=== PATIENT | female | born 1940 | race African-American/Black ===

== ENCOUNTER 2020-06-25 05:41 | Inpatient (IN) | payer OTHER ==
[~2020-06-25] VITALS: Ht 170.2 cm; Wt 94.4 kg
[2020-06-25] VITALS (53 sets, daily range): BP systolic 63–149; BP diastolic 19–110
--- NOTE | ~2020-06-25 | O ---
[facility] [place] [address] OPERATIVE REPORT Name: TERESA MACIEL Room #: 358-P ADM IN M.R.#: [id number] Admission: 06/25/20 Attend Phys: Caleb Vasquez MD Discharge: Date of : 40 Report #: [id number] THIS REPORT FOR: cc: Winston Tran,Raomn Carson MD ~ CC: Caleb Tran DATE OF SERVICE: 07/18/2020 PREOPERATIVE DIAGNOSES: Failure to thrive with protein-calorie malnutrition. POSTOPERATIVE DIAGNOSES: Failure to thrive with protein-calorie malnutrition. OPERATION: Laparoscopic jejunostomy. SURGEON: Ramon Oconnor MD ANESTHESIA: General. ESTIMATED BLOOD LOSS: Minimal. SPECIMEN: None. DESCRIPTION OF PROCEDURE: After informed consent was obtained, the patient was brought to the operating room and placed supine. SCDs were placed and working, preoperative antibiotics were administered, general anesthesia was induced. The abdomen was prepped and draped in the usual sterile fashion. A 5 mm incision was made around the umbilicus. A 5 mm trocar was placed under direct vision with a Visiport technique. Left lower quadrant and inferior midline 5 mm trocars were placed under direct vision. This was initially was planned to be a gastrostomy. However, she had significant scarring in the right upper quadrant from a previous unknown. This is probably why GI was not able to place PEG as well. Therefore, I felt that it would be safest to place a jejunostomy. The jejunum was run from the ligament of Treitz. I selected a spot approximately 30 cm from the ligament of Treitz. It was cannulated with a Seldinger needle. Two T-bars were used to lr through the small bowel and bring it up to the abdomen. Wire was placed. Dilator was placed. A 14-Sami jejunostomy was placed through the sheath. The balloon was inflated on the jejunostomy. I then insufflated the jejunostomy to make sure that was in the bowel. This was intraluminal. The jejunostomy tube was then secured in place. The ports were removed under direct vision. The [address] [address] OPERATIVE REPORT Name: TERESA MACIEL Room #: 358-P ADM IN M.R.#: [id number] Admission: 06/25/20 Attend Phys: Caleb Vasquez MD Discharge: Date of : 40 Report #: [id number] skin was closed with 4-0 Monocryl. Incisions were sealed with Steri-Strips. COMPLICATIONS: None. DISPOSITION: The patient was taken to recovery in satisfactory condition. By: 1213 1225 Ramon Oconnor MD /nt
[2020-06-25 06:36] LABS: URINE BILIRUBIN NEGATIVE (Negative); URINE BLOOD 2+ (Negative); URINE CLARITY CLEAR; URINE COLOR YELLOW; URINE GLUCOSE-RANDOM* NEGATIVE (Negative); URINE KETONES NEGATIVE (Negative); URINE NITRITE-REFLEX NEGATIVE (Negative); URINE PROTEIN (DIPSTICK) 2+ (Negative); URINE SPECIFIC GRAVITY 1.025 (1.005-1.035); URINE UROBILINOGEN 0.2 E.U./dl (0.2-1.0)
[2020-06-25 06:39] LABS: URINE LEUKOCYTES-REFLEX 2+ (Negative)
[2020-06-25 06:58] LABS: SQUAMOUS 0-3 Few /LPF (0-3)
[2020-06-25 07:00] LABS: FINE GRANULAR CASTS 0-3 Few /LPF (None Seen); URINE RBC 3-10 Few /HPF (0-2); URINE WBC-REFLEX >25 Many /HPF (0-5)
[2020-06-25 07:01] LABS: AMORPHOUS URATES Moderate /LPF (None Seen); BACTERIA-REFLEX >30 Many /HPF (None Seen)
[2020-06-25] MEDS ORDERED: ASA81BEC PO (07:22)
[2020-06-25] MEDS ORDERED: MAGIC BULLET10 MG RECTAL (07:24)
[2020-06-25] MEDS ORDERED: BUSPIRONE HCL7.5 MG PO (07:24)
[2020-06-25] MEDS ORDERED: CLONIDINE HCL0.2 M2 PO (07:28)
[2020-06-25] MEDS ORDERED: VITAMIN D310 MC2 PO (07:28)
[2020-06-25] MEDS ORDERED: COLACE100 MG PO (07:29)
[2020-06-25] MEDS ORDERED: COMBIVENT INH (07:29)
[2020-06-25] MEDS ORDERED: DEPAKOTE125 MG PO (07:29)
[2020-06-25] MEDS ORDERED: VOLTAREN GEL 1100 G1 TOP (07:30)
[2020-06-25] MEDS ORDERED: DOXYCYCLINE 10100 M2 PO (07:30)
[2020-06-25] MEDS ORDERED: GVOKE SYRI1 MG/0.2 M SUBQ (07:31)
[2020-06-25] MEDS ORDERED: ELIQUIS5 MG PO (07:31)
[2020-06-25] MEDS ORDERED: HUMALOG100 UNIT/1 SUBQ (07:32)
[2020-06-25] MEDS ORDERED: LANTUS SUBQ (07:33)
[2020-06-25] MEDS ORDERED: HYDRALAZINE 10M10 MG PO (07:33)
[2020-06-25] MEDS ORDERED: LASIX 40 MG TAB40 MG PO (07:34)
[2020-06-25] MEDS ORDERED: LEVO-T75 MCG PO (07:34)
[2020-06-25] MEDS ORDERED: MAALOX ADVANCE355 M1 PO (07:34)
[2020-06-25] MEDS ORDERED: MAGNESIUM400 MG PO (07:35)
[2020-06-25] MEDS ORDERED: SUPER THERAVIT1 EACH PO (07:36)
[2020-06-25] MEDS ORDERED: MELATONIN5 MG SUBLING (07:36)
[2020-06-25] MEDS ORDERED: MIRALAX119 GM PO (07:36)
[2020-06-25] MEDS ORDERED: MIRTAZAPINE7.5 MG PO (07:37)
[2020-06-25] MEDS ORDERED: PROCARDIA XL60 MG PO (07:38)
[2020-06-25] MEDS ORDERED: NITROSTAT0.4 M1 SUBLING (07:40)
[2020-06-25] MEDS ORDERED: OXYCODONE HCL E10 MG PO (07:40)
[2020-06-25] MEDS ORDERED: KLOR-CON 1010 MEQ PO (07:41)
[2020-06-25] MEDS ORDERED: OYSTER SHELL 21 EACH PO (07:41)
[2020-06-25] MEDS ORDERED: RAYOS2 MG PO (07:42)
[2020-06-25] MEDS ORDERED: PREDNISONE 1 MG1 M1 PO (07:42)
[2020-06-25] MEDS ORDERED: TROKENDI XR50 MG PO (07:43)
[2020-06-25] MEDS ORDERED: SENNA PLUS TAB1 EACH PO (07:43)
[2020-06-25] MEDS ORDERED: PROTONIX40 M2 PO (07:43)
[2020-06-25] MEDS ORDERED: TYLENOL325 M1 PO (07:44)
[2020-06-25 07:46] LABS: HEMOGLOBIN 10.1 gm/dL (12.0-15.0); RDW 17.2 % (10.5-14.5)
[2020-06-25 07:47] LABS: HEMATOCRIT 31.6 % (37.0-47.0); MCH 26.2 pg (26.0-34.0); MCV 81.8 fL (80.0-100.0); PLATELET COUNT 249 thou/uL (150-400); RBC 3.86 mil/uL (4.20-5.00); WBC 14.5 thou/uL (4.0-11.0)
[2020-06-25 07:50] LABS: CREATININE 3.1 mg/dL (0.6-1.0); POTASSIUM 3.2 mmol/L (3.5-5.1)
[2020-06-25 08:00] LABS: ALBUMIN 1.2 g/dL (3.4-5.0); TOTAL BILIRUBIN 0.3 mg/dL (0.2-1.0); TOTAL PROTEIN 6.9 g/dL (6.4-8.2); TROPONIN-I 0.07 ng/mL (<0.06)
--- NOTE | 2020-06-25 08:28 | NUR ---
CENTRAL LINE PLACED BY DR MARQUEZ AT THIS TIME
--- NOTE | 2020-06-25 08:36 | EKG ---
[facility] [place] [address] ELECTROCARDIOGRAM REPORT Name: MACIELPATRICIA CORTEZINE Room #: [facility].#: [id number] Admission: 06/25/20 Attend Phys: Discharge: Date of : 40 Report #: [id number] THIS REPORT FOR: cc: Winston Tran James D. DO Lundgren, Craig H. MD [facility] ~ THIS REPORT FOR: //name// [facility] ED Test Date: 2020-06-25 Test Time: 05:53:33 Pat Name: TERESA MACIEL Department: Room: Gender: F Telecommunication Engineer: Riya : 1940 Requested By: Patrick Thomas Order Number: [id number] MD: Floyd Diaz Measurements Intervals [place] Rate: 146 P: AK: QRS: -59 QRSD: 94 T: 56 QT: 306 QTc: 477 Interpretive Statements Atrial fibrillation with rapid V-rate Left anterior fascicular block Inferior infarct, age indeterminate Poor R wave progression Baseline wander in lead(s) V5 No previous ECG available for comparison Electronically Signed On 06-25-2020 8:36:13 CDT by Floyd Diaz [email or web address] <ELECTRONICALLY SIGNED> By: Floyd Diaz MD, [facility] 06/25/20 0836 [id number] [id number] Floyd Diaz MD, [facility] /EPI
[2020-06-25 09:58] LABS: ABSOLUTE NEUTROPHILS 12.9 thou/uL (1.4-8.2); METAMYELOCYTES 2 %
[2020-06-25 09:59] LABS: ANISOCYTOSIS 1+
--- NOTE | 2020-06-25 18:59 | NUR ---
patient remains very drowsy and hard to arrouse. Patient is able to answer some questions and is alert to self. pleasant and cooperative with cares. no complaints of pain. wounds noted and documented. patient continues to be in afib rvr, rates still in the 130's despite crdizem drip being maxed. called cardiology and orders recieved for cardizem 120 po x 1. i was able to get the pill in her but she is to weak to swallow. no furhter concerns at this time. will conintue to monitor and care per plan of care
--- NOTE | 2020-06-25 21:16 | NUR ---
CALL TO DR. GARSIA [facility], RETURN PAGE AT 2025. DISCUSSED HR 120-135, RR 30'S, PATIENT UNABLE TO SWALLOW, UNSURE HOW MUCH OF PO CARDIZEM THAT PATIENT ACTUALLY RECIEVED. CARDIZEM GTT MAXED AT 20MG/HR. DISCUSSED SBP 90-100'S. ORDERS RECIEVED TO INCREASE CARDIZEM GTT TO 25 MG/HR AND TO CALL BACK IF HR NOT LESS THAN 110 IN 1 HOUR
--- NOTE | 2020-06-25 22:45 | NUR ---
CALL TO DR. GARSIA, WITH CALL BACK AT 2121 REGARDING HR, MAINTAINING 130'S-145. ORDERS TO GIVE 250CC BOLUS TO SUPPORT BP 87/42 (55), MAY GIVE SECOND BOLUS OF 250 CC IN 30 MINUTES IF BP IS STILL LOW. MAY WEAN CARDIZEM DOWN, GET EKG TO CONFIRM RHYTHM. EKG REVEALS SINUS OR ATRIAL TACHYCARDIA. TEMP WAS ALSO 102.9 WHEN THIS RN WENT IN TO TAKE GET EKG. CALL TO AMANDA HARVEY FOR RECTAL TYLENOL AND TO GIVE UPDATE. NOTIFIED DR. GARSIA OF CHANGES AND OBTAINED APPROVAL TO TITRATE CARDIZEM DOWN AND OFF. ROOM COOLED, RECTAL TYLENOL GIVEN, ICE PACKS IN PLACE, HR NOW MAINTAINING 125-133
[2020-06-26] VITALS (88 sets, daily range): BP systolic 72–130; BP diastolic 32–69
--- NOTE | 2020-06-26 01:24 | NUR ---
NOTIFIED CLINICAL PHLEBOTOMIST OF LOW BP, BLADDER SCAN ONLY 250CC, LAST VOID ON DAY SHIFT, HR 110'S. ORDERS FOR 250CC BOLUS TO SEE IF THAT HELPS BP
[2020-06-26 04:18] LABS: HEMATOCRIT 24.7 % (37.0-47.0); MCH 26.5 pg (26.0-34.0); MCHC 31.7 g/dL (28.0-37.0); MCV 83.4 fL (80.0-100.0); RBC 2.96 mil/uL (4.20-5.00); RDW 17.5 % (10.5-14.5); WBC 11.1 thou/uL (4.0-11.0)
[2020-06-26 04:34] LABS: ALBUMIN 0.8 g/dL (3.4-5.0); CALCIUM 6.8 mg/dL (8.5-10.1); CREATININE 3.2 mg/dL (0.6-1.0); POTASSIUM 3.2 mmol/L (3.5-5.1); TOTAL BILIRUBIN 0.3 mg/dL (0.2-1.0); TOTAL PROTEIN 5.4 g/dL (6.4-8.2)
[2020-06-26 05:25] LABS: HEMOGLOBIN 7.8 gm/dL (12.0-15.0)
--- NOTE | 2020-06-26 07:02 | NUR ---
HR LESS THAN 100, RR 20-25, ABLE TO INTERACT WITH RN, CONFUSED AT TIMES, BUT ABLE TO STATE "MY LEG HURTS." CRIES OUT WITH TURNS, MAPS>65 ON LEVO, WATERY STOOL WITH GREEN/BROWN. INCONT OF URINEX1.
--- NOTE | 2020-06-26 09:44 | NUR ---
cm completed the initial assessment; spk w/pt's son, Jona who stated pt has resided at [facility] for "about 5 yrs." Howard stated pt test covid positive "about 2 weeks ago, after testing negative a first." [facility] moved pt to a different facility where other covid positive pt resided, but he did not recall the name. howard said pt was there for "less than a week before they moved her back to [facility] and I dont know why...she was doing too good there." Howard said he is "working on her burial stuff." pt is bed to w/c. Howard denies pt has dementia, memory loss, "no, she recognizes everybody." cm left message for Emmy, Admission at [facility]. cm to cont to follow.
[2020-06-26 10:17] LABS: URINE BILIRUBIN NEGATIVE (Negative); URINE BLOOD 2+ (Negative); URINE COLOR YELLOW; URINE GLUCOSE-RANDOM* NEGATIVE (Negative); URINE KETONES NEGATIVE (Negative); URINE LEUKOCYTES 3+ (Negative); URINE NITRITE NEGATIVE (Negative); URINE PROTEIN (DIPSTICK) 2+ (Negative); URINE UROBILINOGEN 0.2 E.U./dl (0.2-1.0)
[2020-06-26 10:18] LABS: URINE CLARITY HAZY
[2020-06-26 10:31] LABS: URINE CREATININE-RANDOM* 89.3 mg/dL
[2020-06-26 10:52] LABS: SQUAMOUS 0-3 Few /LPF (0-3)
[2020-06-26 10:53] LABS: AMORPHOUS URATES Moderate /LPF (None Seen); HYALINE CASTS 0-3 Few /LPF (None Seen); URINE RBC 3-10 Few /HPF (0-2); URINE WBC >25 Many /HPF (0-5)
--- NOTE | 2020-06-26 12:40 | NUR ---
WOUND CONSULT; LIMITED ASESSMENT RE; COVID RESTRICTIONS USING THE RN BEDSIDE ASSESSMENT AND WOUND PICTURES. THE RIGHT MALLEOLAR AREA IS SUPERFICIAL WITHOUT S/S OF INFECTION. THE COCCYX/GLUTEAL CREASE HAS SKIN BREADOWN RE; MOISTURE EFFECTS. OPEN WOUND WITH A LINEAR PPRESENTATION. BEEFY RED TISSUE, NO S/S OF INFECTION. RECOMMENDATIONS; 1-TO COCCYX: ZGUARD, COVER WITH A SMALL SACRAL FOAM, DAILY/PRN 2-TO RIGHT MALLEOLOUS: COVER WITH A BORDER FOAM,DAILY/PRN DISCUSSED WITH RN
[2020-06-26 13:29] LABS: BE(vivo) -16.5 mmol/L (-2 to +3); HCO3 8.8 mmol/L (22.0-26.0); PO2 83.9 mmHg (80.0-100.0); sO2 95.2 % (92.0-98.0)
[2020-06-26 13:30] LABS: PCO2 20.1 mmHg (35.0-45.0)
[2020-06-26 14:03] LABS: HEMATOCRIT 25.6 % (37.0-47.0); HEMOGLOBIN 8.2 gm/dL (12.0-15.0); MCH 26.8 pg (26.0-34.0); MCHC 32.2 g/dL (28.0-37.0); MCV 83.4 fL (80.0-100.0); RBC 3.07 mil/uL (4.20-5.00); RDW 17.8 % (10.5-14.5); WBC 14.9 thou/uL (4.0-11.0)
[2020-06-26 14:20] LABS: CALCIUM 7.3 mg/dL (8.5-10.1); CREATININE 2.8 mg/dL (0.6-1.0); POTASSIUM 3.4 mmol/L (3.5-5.1)
--- NOTE | 2020-06-26 16:13 | EKG ---
[facility] [place] [address] ELECTROCARDIOGRAM REPORT Name: PATRICIA MACIELINE Room #: 241-P ADM IN M.R.#: [id number] Admission: 06/25/20 Attend Phys: Caleb Vasquez MD Discharge: Date of : 40 Report #: [id number] THIS REPORT FOR: cc: Winston Tran James D. DO Lammoglia, Francisco J. MD ~ THIS REPORT FOR: //name// [facility] Test Date: 2020-06-25 Test Time: 21:51:15 Pat Name: TERESA MACIEL Department: Room: 241 P Gender: F Instructional Support Specialist: Star Sutherland : 1940 Requested By: Caleb Vasquez Order Number: [id number] MD: Mio King Measurements Intervals [place] Rate: 132 P: 226 SC: 97 QRS: -68 QRSD: 73 T: 65 QT: 283 QTc: 420 Interpretive Statements Sinus or ectopic atrial tachycardia Inferior infarct, old Poor R wave progression Nonspecific ST-T wave change Compared to ECG 06/25/2020 05:53:33 Rhythm is regular Electronically Signed On 06-26-2020 16:13:13 CDT by Mio King [email or web address] <ELECTRONICALLY SIGNED> By: Mio King MD 06/26/20 1613 50 50 Mio King MD /EPI
--- NOTE | 2020-06-26 16:22 | EKG ---
[facility] [place] [address] ELECTROCARDIOGRAM REPORT Name: PATRICIA MACIELINE Room #: 241-P ADM IN M.R.#: [id number] Admission: 06/25/20 Attend Phys: Caleb Vasquez MD Discharge: Date of : 40 Report #: [id number] THIS REPORT FOR: cc: Winston Tran James D. DO Lammoglia, Francisco J. MD ~ THIS REPORT FOR: //name// [facility] Test Date: 2020-06-26 Test Time: 08:15:26 Pat Name: TERESA MACIEL Department: Room: 241 P Gender: F Mobile Ui/Ux Designer: JOSE : 1940 Requested By: Jerry Kraft Order Number: [id number] MD: Mio King Measurements Intervals [place] Rate: 99 P: 249 TN: 83 QRS: -49 QRSD: 83 T: 46 QT: 329 QTc: 423 Interpretive Statements Sinus or ectopic atrial rhythm Poor R wave progression Baseline wander in lead(s) V2 Compared to ECG 06/25/2020 05:53:33 No significant changes Electronically Signed On 06-26-2020 16:22:42 CDT by Mio King [email or web address] <ELECTRONICALLY SIGNED> By: Mio King MD 06/26/20 1622 4 4 Mio King MD /EPI
--- NOTE | 2020-06-26 19:22 | NUR ---
PATIENT NOTED TO HAVE CRITICAL VALUES IN BLOOD GAS. NOTIFIED. SEE NEW ORDERS. RESPIRATIONS ARE LABORED. PRN PAIN MED ADMININSTERED SHE TEMP WAS 99.0. FAMILY CALLED UPDATED ON PATIENTS STATUS. WILL CONT WITH PLAN OF CARES.
[2020-06-27] VITALS (90 sets, daily range): BP systolic 83–156; BP diastolic 37–78
[2020-06-27 01:44] LABS: MAGNESIUM 1.5 mg/dL (1.8-2.4)
[2020-06-27 02:01] LABS: POTASSIUM 2.8 mmol/L (3.5-5.1)
[2020-06-27 06:41] LABS: HEMATOCRIT 26.5 % (37.0-47.0); HEMOGLOBIN 8.4 gm/dL (12.0-15.0); MCH 25.7 pg (26.0-34.0); MCHC 31.7 g/dL (28.0-37.0); RBC 3.27 mil/uL (4.20-5.00); WBC 18.2 thou/uL (4.0-11.0)
[2020-06-27 09:16] LABS: BE(vivo) -6.9 mmol/L (-2 to +3); HCO3 16.2 mmol/L (22.0-26.0); PO2 71.4 mmHg (80.0-100.0); sO2 95.1 % (92.0-98.0)
[2020-06-27 09:21] LABS: CALCIUM 7.7 mg/dL (8.5-10.1); CREATININE 3.2 mg/dL (0.6-1.0); MAGNESIUM 2.1 mg/dL (1.8-2.4); POTASSIUM 3.3 mmol/L (3.5-5.1)
[2020-06-27 10:01] LABS: POTASSIUM 3.2 mmol/L (3.5-5.1)
--- NOTE | 2020-06-27 19:15 | NUR ---
tylenol given for discomfort, pt yells intermittently and always yells out when repositioned. R arm with increased edema despite elevation, doppler negative. kcl replaced per Dr. Elliott's order. resting in afternoon for @ 3 hrs. no appetite, difficult to even get crushed meds down with pudding. notified Dr. Mobley, bhoff placed at 65 cm, kub pending for placement. urine output decreasing, call placed to Dr. Elliott. stool sent for occult blood per order. agree with charting performed by KARLOS Velasco.
[2020-06-28] VITALS (95 sets, daily range): BP systolic 80–151; BP diastolic 37–107
--- NOTE | 2020-06-28 00:59 | NUR ---
CALLED LAB ABOUT MISC MESSAGE FROM DR. GOULD. PCR WAS SENT TO "[facility]" AND WILL HAVE TO BE CONTACTED IN AM TO RECIEVE THE PCR
[2020-06-28 05:08] LABS: ALBUMIN 0.9 g/dL (3.4-5.0); CALCIUM 7.6 mg/dL (8.5-10.1); CREATININE 2.6 mg/dL (0.6-1.0); PHOSPHORUS 1.9 mg/dL (2.5-4.9); POTASSIUM 3.5 mmol/L (3.5-5.1)
--- NOTE | 2020-06-28 07:30 | NUR ---
AL-ABSI ROUNDING. WOULD LIKE RIOS CATHETER TO BE CHANGED. THINKS PT IS HAVING URINARY RETENTION. STATED I HAD FLUSHED THE CATHETER AND HAD NO INCREASE IN AMOUNT OF URINE. STILL WOULD LIKE RIOS TO BE CHANGED OUT FOR ANOTHER.
--- NOTE | 2020-06-28 07:46 | NUR ---
PATIENT CRYIING OUT FOR SEVERAL HOURS AT BEGINNING OF SHIFT, TYLENOL GIVEN IN ATTEMPT TO EASE PAIN, WITHOUT RESULT. PATIENT CONTINUING TO CRY WITHOUT ANY MOVEMENT OR NURSING CARES. GAVE 1X DOSE OXYCODONE, PATIENT SLEPT FOR SEVERAL HOURS. WAKES AND FOLLOWS COMMANDS, ORIENTED TO PERSON.
--- NOTE | 2020-06-28 09:48 | NUR ---
RD received consult for tube feed recommendations. Start vital AF 1.2 at 30ml/hr and progress to goal of 65ml/hr. Defer fluid needs to renal.
--- NOTE | 2020-06-28 10:37 | NUR ---
WOUND CARE F/U; DISCUSSED THE PATIENTS WOUND STATUS WITH THE RN. LIMITED ASSESSMENT DUE TO COVID RESTRICTIONS. THE WOUNDS ARE UNCHANGED FROM LAST ASSESSMENT. CONTINUE CURRENT TREATMENT. RN PRESENT
--- NOTE | 2020-06-28 15:15 | NUR ---
MESSAGE LEFT FOR MEDICAL RECOREDS AT [facility]
--- NOTE | 2020-06-28 15:59 | NUR ---
CM SPOKE WITH CARE TEAM THIS AM. NURSE WAS REACHING OUT TO FACILITY TO DETERMINE BASELINE CREATININE. NO DISHCARGE IS ANTICPATED OVER THE WEEKEND. CM CALLED AND PROVIDED UPDATE TO SON. CM TO FOLLOW INIDCATED WITH DC PLANNING.
--- NOTE | 2020-06-28 17:35 | NUR ---
TALKED WITH MEDICAL RECORDS AT [place]. FAX NUMBER GIVEN. ASKED FOR RECENT LAB WORK AND MEDICAL HISTORY.
--- NOTE | 2020-06-28 18:25 | NUR ---
PT VSS THORUGHOUT SHIFT. LEVOPHED GTT WEANED OFF TODAY. TF STARTED. VITAL AF WITH GOAL OF 65 ML/HR. TALKED WITH JODI REGARDING PTS RECORDS. STATES THEY ARE GOING TO TRY FAXING AGAIN. PT YELLING OUT CONSTANTLY. HAD PERIODS OF REST. RIOS CATHETER CHANGED TODAY WITH NO INCREASE OF URINE OUTPUT. LASIX 80 MG IVP TID STARTED TODAY WITH LITTLE RESULTS.
--- NOTE | 2020-06-28 19:27 | NUR ---
RECEIVED REPORT FROM JIMI EVERETT. ASSUMED PATIENT CARE AT THIS TIME.
[2020-06-29] VITALS (93 sets, daily range): BP systolic 102–161; BP diastolic 48–83
[2020-06-29 11:27] LABS: ALBUMIN 0.9 g/dL (3.4-5.0); CALCIUM 7.7 mg/dL (8.5-10.1); CREATININE 2.6 mg/dL (0.6-1.0); PHOSPHORUS 1.6 mg/dL (2.5-4.9)
[2020-06-29 11:29] LABS: POTASSIUM 2.8 mmol/L (3.5-5.1)
[2020-06-29 13:31] LABS: PROT/CREAT RATIO 3.3; URINE CREATININE-RANDOM* 34.3 mg/dL; URINE PROTEIN-RANDOM* 111.8 mg/dL (<11.9)
[2020-06-29 14:45] LABS: BE(vivo) 7.3 mmol/L (-2 to +3); HCO3 30.6 mmol/L (22.0-26.0); PCO2 37.9 mmHg (35.0-45.0); PO2 67.5 mmHg (80.0-100.0); pH 7.525 (7.360-7.450); sO2 95.2 % (92.0-98.0)
[2020-06-29] MEDS ORDERED: SERTRALINE HCL100 MG PO (16:56)
--- NOTE | 2020-06-29 19:51 | NUR ---
PT UPSET CRYING & SCREAMING THROUGHOUT SHIFT. RESP RATE & HR INCREASED PT CONTINUES TO SHOW MENTAL DISTRESS. PHYSICIAN NOTIFIED ON 3 SEPARATE OCCASIONS REGARDING PT STATUS. ALSO NOTIFIED THAT PT IS ON ANTIPSYCHOTICS & ANTIDEPRESSANTS AT FACILITY THAT HAVE NOT BEEN RESTARTED SINCE ADMISSION. RECEIVED ORDERS FOR PRN MEDS. MEDS GIVEN TO PT WITHOUT ANY RELIEF NOTED. PHYSICIAN NOTIFIED OF PT CONTINUED STATUS APPROX 4HRS POST ADMINISTRATION. RECEIVED ONETIME IM ORDER. ADMINISTERED TO PT, PT CONTINUES TO CRY AND SCREAM OUT. ABLE TO CONSOLE PT WHILE IN ROOM BUT PT DOES NOT REORIENT. ATTEMPTED TO CALL PT FACILITY 3 TIMES THIS SHIFT TO DETERMINE BASELINE ASSESSMENT, PHONE WAS NOT ANSWERED ON ANY OCCASION. PT HAD MINIMAL URINE OUTPUT THIS SHIFT, NEPHROLOGY AND HOSPITALIST AWARE OF URINE OUTPUT. MEDS ORDERED AND ADMINISTERED. POTASSIUMS REPLACED PER ORDERS. PT REMAINS ON 4L NC O2 SAT WNL. FALL PRECAUTIONS IN PLACE.
[2020-06-30] VITALS (69 sets, daily range): BP systolic 107–170; BP diastolic 52–101
[2020-06-30 04:41] LABS: HEMATOCRIT 23.9 % (37.0-47.0); HEMOGLOBIN 7.7 gm/dL (12.0-15.0); MCH 25.8 pg (26.0-34.0); MCHC 32.4 g/dL (28.0-37.0); MCV 79.8 fL (80.0-100.0); PLATELET COUNT 116 thou/uL (150-400); RDW 17.6 % (10.5-14.5); WBC 24.7 thou/uL (4.0-11.0)
[2020-06-30 04:57] LABS: ALBUMIN 0.7 g/dL (3.4-5.0); CALCIUM 7.6 mg/dL (8.5-10.1); PHOSPHORUS 1.7 mg/dL (2.5-4.9); POTASSIUM 3.5 mmol/L (3.5-5.1); TOTAL BILIRUBIN 0.6 mg/dL (0.2-1.0); TOTAL PROTEIN 5.9 g/dL (6.4-8.2)
[2020-06-30 05:54] LABS: ABSOLUTE NEUTROPHILS 19.5 thou/uL (1.4-8.2); ANISOCYTOSIS 1+; NUCLEATED RBCS 6 /100WBC; SCHISTOCYTES FEW
[2020-06-30 05:55] LABS: TARGET CELLS OCCASIONAL
--- NOTE | 2020-06-30 08:12 | NUR ---
1899-RECEIVED REPORT FROM CHINEDU EVERETT. ASSUMED PATIENT CARE. VSS. PATIENT HAD 350 CC URINE OUT OVERNIGHT. UPDATED DR PATTERSON AND DR MARQUEZ WHEN THEY ROUNDED ON PATIENT AT 0600. PRN METOPROLOL FOR HR SUSTAINING >120. DR PATTERSON IS CHANGING THE IV ABX. PATIENT'S FMS LEAKING. REPLACED 06/30. YELLOW LIQUID STOOLS. REPLACED DRESSING ON SACRAL WOUND. BATHED PATIENT. PATIENT SCREAMING AND UNABLE TO REORIENT. PRN/SCHEDULED MEDS AND ONE TIME DOSE OF HALDOL FROM CANDICE FLIGHT RADIO OPERATOR GIVEN. PATIENT CALMED. PATIENT TOLERATED TUBE FEEDING. 729- GAVE PATIENT REPORT TO ABDIFATAH EVERETT. PATIENT CARE RELINQUISHED. PATIENT PROGRESSING WITH POC.
--- NOTE | 2020-06-30 18:30 | NUR ---
ST/multifocal atrial tachycardia, lopressor iv given x 1 for hr greater than 120, tolerated tube feeding, adequate urine output, drowsy, yelled out occasionally. slowly progressing.
[2020-07-01] VITALS (21 sets, daily range): BP systolic 128–170; BP diastolic 64–90
[2020-07-01 05:13] LABS: PLATELET COUNT 92 thou/uL (150-400)
[2020-07-01 05:16] LABS: HEMATOCRIT 24.2 % (37.0-47.0); HEMOGLOBIN 7.9 gm/dL (12.0-15.0); MCH 25.9 pg (26.0-34.0); MCHC 32.5 g/dL (28.0-37.0); MCV 79.5 fL (80.0-100.0); RBC 3.05 mil/uL (4.20-5.00); RDW 17.5 % (10.5-14.5); WBC 24.3 thou/uL (4.0-11.0)
[2020-07-01 05:43] LABS: ALBUMIN 0.8 g/dL (3.4-5.0); CALCIUM 7.9 mg/dL (8.5-10.1); CREATININE 3.1 mg/dL (0.6-1.0); POTASSIUM 4.2 mmol/L (3.5-5.1); TOTAL BILIRUBIN 0.6 mg/dL (0.2-1.0); TOTAL PROTEIN 6.2 g/dL (6.4-8.2)
--- NOTE | 2020-07-01 06:33 | NUR ---
Patient not progressing towards plan of care as evidenced by only moaning with intervention, not following commands. Patient blood pressure and heart rate continued as has been, o2 saturation has been >92% tonight. Central line dressing was changed as it was soiled, IV tubing removed as it is . Nurse to continue to monitor patient status and follow nursing care plan.
[2020-07-01 09:02] LABS: ABSOLUTE NEUTROPHILS 18.5 thou/uL (1.4-8.2); METAMYELOCYTES 1 %
--- NOTE | 2020-07-01 10:58 | NUR ---
WOUND CARE F/U; ASSESSMENT WAS COMPLETED WITH PICTURES AND RN'S ASSESSMENT DUE TO COVID RESTRICTIONS. THE WOUNDS ARE STABLE AND NO CHANGES ARE NECCESSARY. ALSO NO S/S OF INFECTION. DISCUSSED WITH RN
--- NOTE | 2020-07-01 14:09 | NUR ---
pt remains on o2 3 L per nc, unable to visit with pt to conserve on ppe. abnormal labs ie bun, creat, wbc. pt from [facility] but has been staying at [facility] rt positive covid. cm visited with her daughter neli via phone call, no concerns or needs voice. active listen during visit, daughter reported i am saving up and give me 3 months i will have [address] that i can live with mom and care for her. thank you for calling"/daughter neli. will cont following as needed for dc needs.
--- NOTE | 2020-07-01 18:12 | NUR ---
PT HAS BEEN SOMULENT TODAY. AWAKENS WHEN IN ROOM TALKING WITH HER BUT OTHERWISE ASLEEP. DR. FRANCIS ADJUSTED MEDS GOING FORTH. DISCONTINUE SEROQUEL. TOLERATING TF AT GOAL WITH NO RESIDUALS. VSS. AFEBRILE. DR. GOULD WOULD LIKE WOUND CARE TO LOOK AT PTS RIGHT ARM AND TREAT IF NEEDED.
[2020-07-02] VITALS (16 sets, daily range): BP systolic 108–159; BP diastolic 52–76
--- NOTE | 2020-07-02 05:39 | NUR ---
PATIENT AWAKE, OPENING EYES SPONTANEOUSLY, UNABLE TO SQUEEZE MY HANDS AND NO MOVEMENT TO BLE, VSS, AFEBRILE, DRESSING CHANGE TO COCCYX WOUND COMPLETED. RIGHT UPPER ARM WEEPING WOUNDS NOTED. MD AWARE PER REPORT. DELPHINE ELEVATED C PILLOWS. CHANGING PADS Q 4HRS.
[2020-07-02 05:44] LABS: ALBUMIN 0.9 g/dL (3.4-5.0); CALCIUM 8.1 mg/dL (8.5-10.1); CREATININE 2.6 mg/dL (0.6-1.0); PHOSPHORUS 2.5 mg/dL (2.5-4.9); POTASSIUM 3.6 mmol/L (3.5-5.1)
[2020-07-02 09:29] LABS: RBC 2.97 mil/uL (4.20-5.00)
[2020-07-02 09:31] LABS: HEMOGLOBIN 7.7 gm/dL (12.0-15.0); MCH 25.8 pg (26.0-34.0); MCV 80.8 fL (80.0-100.0); RDW 17.8 % (10.5-14.5); WBC 19.7 thou/uL (4.0-11.0)
[2020-07-02 10:14] LABS: NUCLEATED RBCS 10 /100WBC
[2020-07-02 10:15] LABS: LARGE PLATELETS FEW; PLATELET COUNT 84 thou/uL (150-400); PLATELET ESTIMATE DECREASED
[2020-07-02 10:16] LABS: ANISOCYTOSIS 1+; TOXIC GRANULATION 1+
[2020-07-02 10:17] LABS: HYPOCHROMASIA 1+; POIKILOCYTOSIS 1+; TARGET CELLS FEW
--- NOTE | 2020-07-02 15:43 | NUR ---
>>>0700 BEDSIDE SHIFT REPORT RECEIVED. PT IS DROWSY, RESTLESS. ABLE TO FOLLOW COMMANDS. DENIES PAIN. REPOSITIONING DONE. TUBE FEED AT 65ML/HR. PT IS TOLERATING. WILL CONTINUE TO MONITOR. >>>0800 ASSESSMENTS DONE. PT IS AWAKE, CALM. >>> 1357 CHINEDU RN 3W TELE NURSE GIVEN REPORT. PT TAKEN TO CT FOR CT OF HEAD. TRANSFERED TO 3W, MED SURG FLOOR. FAMILY CALLED, UPDATED ON PT CONDITION AND INFORMED OF THE TRANSFER.
--- NOTE | 2020-07-02 18:36 | HC ---
[facility] [place] [address] CONSULTATION Name: TERESA MACIEL Room #: 358- ADM IN M.R.#: [id number] Admission: 06/25/20 Attend Phys: Caleb Vasquez MD Discharge: Date of : 40 Report #: [id number] THIS REPORT FOR: cc: Winston Tran,Chapin Tucker MD ~ CC: Caleb Tran DATE OF SERVICE: 07/02/2020 CHIEF COMPLAINT: Multiple pressure ulcerations as well as a desquamating process to the right forearm. HISTORY OF PRESENT ILLNESS: This is a 79-year-old female patient who I was asked to see by Dr. Scott Nolasco mainly due to a desquamating process involving her right forearm. The patient has multiple other areas of skin breakdown as well. The patient was admitted on 06/25/2020 with rapid heart rate, respiratory rate and low oxygen saturations. She was found to have severe sepsis with group A strep bacteremia as well as being COVID-19 positive. She has had respiratory compromise with basilar infiltrate, acute kidney injury and encephalopathy, complicating underlying bipolar disorder. The patient is unable to provide any information about herself. PAST MEDICAL HISTORY: Per her records is positive for bipolar disorder, COPD, history of ventricular tachycardia, cognitive acute manic communication deficit, hypothyroidism, anxiety, dysphagia, hypertension, history of GI cancer, otherwise unspecified and type 2 diabetes mellitus. SOCIAL HISTORY: Unknown for drug, alcohol or tobacco use. FAMILY HISTORY: Unknown. MEDICATIONS: Include acetaminophen, ipratropium, albuterol, Eliquis, BuSpar, cefepime, diltiazem, Lasix, metoprolol, methylprednisolone, magnesium sulfate, magnesium oxide, Remeron, olanzapine, Protonix, risperidone, topiramate, clonidine, hydralazine, oxycodone. ALLERGIES: No known drug allergies. REVIEW OF SYSTEMS: Not obtainable. The patient is not able to communicate. She does occasionally make eye contact. She does not give any sort of indication as to her how she feels or makes no attempt to answer any questions. PHYSICAL EXAMINATION: VITAL SIGNS: Include temperature 96.9, pulse 108, blood pressure 112/56, [address] [address] CONSULTATION Name: TERESA MACIEL Room #: [address] [place] [address] IN M.R.#: [id number] Admission: 06/25/20 Attend Phys: Caleb Vasquez MD Discharge: Date of : 40 Report #: [id number] respiratory rate 18. GENERAL: This is a chronically ill-appearing female patient who appears to be in minimal distress. HEENT: Head is normocephalic. Nose demonstrates Dobbhoff tube in place. Facial structures are stable. NECK: Supple. LUNGS: Diminished. HEART: Regular rhythm. ABDOMEN: Obese, soft, nontender. There is intertrigo beneath the skin folds of the abdominal wall bilaterally. BACK: Examination of the back; sacroperineal region demonstrates what appears to be a stage 3 pressure ulcer to the coccygeal region. This is relatively clean and granulating and it is long and narrow and has no exposure of deep structures. There is breakdown in the perirectal region. There is a rectal tube in place. There is leakage around the rectal tube. She has moisture-associated skin damage in the perirectal labial and medial thigh region. EXTREMITIES: Demonstrate what appeared to be unstageable small pressure ulcers with some dry eschar and a little bit of crust involving the lateral malleoli bilaterally. Heels are intact. NEUROLOGIC: The patient appears to move spontaneously in a symmetrical fashion. She does not answer questions. Her level of orientation is not able to be assessed. LABORATORY DATA: Includes positive blood cultures for group A beta-hemolytic strep. No wound cultures have been obtained at this point; will be obtained today. Sodium 146, potassium 3.6, chloride 105, CO2 of 32, BUN 75, creatinine 2.6, calcium is 8.1, phosphorus 2.5, albumin is quite low at 0.9. It has been low throughout her hospitalization here. White blood cell count 19.7 with a hemoglobin of 7.7, hematocrit of 24.0, platelet count 84,000. CLINICAL IMPRESSION: 1. Desquamating process involving the right forearm. Etiology is not entirely established. We will check a culture and sensitivity from this area and then treat with topical gentamicin, Xeroform gauze, ABD, Kerlix and Jose wraps. Venous Doppler was negative for DVT involving the right upper extremity. 2. Stage 3 pressure ulcer of the coccyx. We will recommend a low air loss mattress, q. 2 hour turning and positioning, zinc oxide. There is fecal contamination, so secondary dressings are not going to be recommended at this time. She will need ongoing nutritional support. 3. Moisture-associated skin damage to the labia perirectal and perineal region. Recommend zinc oxide moisture barrier cream to this area q. 6 hours, frequent inspection for additional breakdown. 4. Abdominal skin fold intertrigo. We will recommend InterDry AG to these areas beneath the abdominal skin folds to be changed out daily. 5. Unstageable pressure ulcers to bilateral lateral malleoli. We will [address] [address] CONSULTATION Name: TERESA MACIEL Room #: 358-P [facility] IN M.R.#: [id number] Admission: 06/25/20 Attend Phys: Caleb Vasquez MD Discharge: Date of : 40 Report #: [id number] recommend the use of a border foam to both areas and then PRAFO boots for pressure prophylaxis while she is in bed. 6. Type 2 diabetes mellitus. 7. Morbid obesity. 8. Severe protein-calorie malnutrition. Recommendation ongoing tube feeding would be appropriate until she is able to eat. RECOMMENDATIONS: At this point in time, orders have been placed for dressing changes. I have discussed this case with Dr. Scott Nolasco. I will discuss further as additional data becomes available. I appreciate being asked to see her in consultation. <ELECTRONICALLY SIGNED> By: Chapin Carey MD 07/02/20 1836 1141 1237 Chapin Carey MD /nt
--- NOTE | 2020-07-02 19:46 | NUR ---
PATIENT TRANSFER FROM ICU AT 1330. ALERT TO SELF. NONE VERBLE. WOUND CARE PER ORDER. SLOWLY TOWARDS POC GOALS.
[2020-07-03 04:32] VITALS: BP 99/43
--- NOTE | 2020-07-03 05:59 | NUR ---
OPENS EYES.REPOSITIONED Q2 HOURS.ON TUBE FEEDING;VITAL AF 1.2 AT 65 ML/HR GOING TO DOBHOFF.RIOS TO DD.FECAL MANAGEMENT SYSTEM TO DD.MONITOR SHOWS SR WITH PVC'S.POC CONTINUED.
[2020-07-03 07:42] VITALS: BP 127/55
[2020-07-03 11:36] VITALS: BP 130/50
--- NOTE | 2020-07-03 14:43 | NUR ---
DARELL reviewed chart and spoke with nursing and attending physician. Pt was transferred to from ICU. Pt is in Enhanced Isolation due to COVID-19. Pt is afebrile and on 3L of O2. T is on IV abx. Pt had convalescent plasma on 06/27. DARELL provided update to [facility] post-acute liaison. emergency planner to fax clinical updates for review. Plan is for pt to return to [facility] when medically stable. DARELL is following to assist as needed with discharge planning.
--- NOTE | 2020-07-03 16:42 | NUR ---
FAXED CLINICAL UPDATE TO JODI OF RECEIVED CONFIRMATION AND LEFT MSG WITH NANCIE IN ADM.
[2020-07-03 16:52] VITALS: BP 118/51
[2020-07-03 19:44] VITALS: BP 108/55
[2020-07-04 04:15] VITALS: BP 101/48
[2020-07-04 06:36] LABS: CALCIUM 8.5 mg/dL (8.5-10.1); CREATININE 3.1 mg/dL (0.6-1.0); PHOSPHORUS 3.3 mg/dL (2.5-4.9); POTASSIUM 3.3 mmol/L (3.5-5.1)
--- NOTE | 2020-07-04 10:38 | HC ---
[facility] [place] [address] CONSULTATION Name: TERESA MACIEL Room #: 358-P ADM IN M.R.#: [id number] Admission: 06/25/20 Attend Phys: Caleb Vasquez MD Discharge: Date of : 40 Report #: [id number] THIS REPORT FOR: cc: Winston Tran James D. DO Khosla, Parveen K. MD ~ CC: Caleb Tran DATE OF SERVICE: 07/02/2020 HISTORY OF PRESENT ILLNESS: This is a 79-year-old female patient who is unable to provide any history. She makes some noises. She barely said anything, even when I asked her questions multiple times. I called the patient's son and he did not answer. I called the patient's daughter. She was initially upset that "how come the alf did not provide you all the information and you are trying to get from us." After explaining her, I was able to talk to her, but I do not think that history is reliable because there are many contraindications. Apparently, she was in a alf for 4-5 years. It is not clear why she was in a alf. She claims that they dropped the patient and her legs stopped working in the alf. She says her memory is good, but I do not know how to verify that because of the records says that she has cognitive deficits. When I asked her does she able to remember the month and years, she says "I never asked her that questions." She has numerous problems. From the record, it looks like she is DNR and DNI. Pulmonary is seeing her for increased oxygen needs. She was COVID positive according to the daughter and she was shifted to a different alf according to her. She has history of kidney injury and she has a history of atrial fibrillation. This is mainly from the record. She has a history of bipolar, COPD, hypothyroidism, anxiety, hypertension. diabetes, but this is all from the record. She is on multiple medications including Topamax and I do not know why she is on those. A 14-point review of system was attempted and this is all I can get from the record. This patient has been seen by multiple consultants and their notes were reviewed. PAST MEDICAL HISTORY: Positive for cognitive deficit according to the records. The daughter tells a different story. She has pretty significant disabilities, especially in the legs according to the daughter in the baseline. FAMILY HISTORY: Unremarkable. SOCIAL HISTORY: She lives in a alf. PHYSICAL EXAMINATION: Pretty limited. She made some noises, but she had no speech output, except when I tried to do the reflexes, she said stop. She would [facility] [address] [place] [address] CONSULTATION Name: PATRICIA MACIELINE Room #: 358-P [facility] IN M.R.#: [id number] Admission: 06/25/20 Attend Phys: Caleb Vasquez MD Discharge: Date of : 40 Report #: [id number] not follow commands for me. She did not move her legs for me. She had very limited if any movement of the arms. She had virtually no speech output. She was conscious, but she just did not follow any commands. LABORATORY DATA: Her last white count was 19.7. Her sodium is up at 146. Her last GFR is 22. Her last blood sugar is 337. Her last protein is only 0.9. TSH was done and that was okay. She does not appear to be in that much respiratory distress when I saw her, but that has been her baseline problem. She had a CT scan of the head and that does not show any acute abnormality. IMPRESSION: In spite of the history, the patient's daughter provided, it looks like the history and the record is more accurate and the patient has cognitive deficit in the baseline. She appears to have more problems, especially with the legs and she has been in a alf for a long period of time. I will suggest having a family conference with all the family member and try to be less aggressive in this patient. 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 I will suggest if the family agree not to be aggressive, not to do much testing on her. Otherwise, an MRI can be arranged to check for those changes. She does not appear to have any meningeal sign. I did order vitamin B12 and myasthenia marker to check for that and I will suggest putting some high dose of thiamine for 5 days and vitamins in her IV. I will discuss with you, but except for above I do not have any particular recommendation in this patient except to be very conservative in this patient if the family is agreeable and have a family conference with them. Thank you very much for this referral and if you have any question, please feel free to contact me. I would not plan to follow up this patient, but please call if the followup is needed. <ELECTRONICALLY SIGNED> By: Mj Green MD 07/04/20 1038 [id number] Mj Green MD /nt
--- NOTE | 2020-07-04 14:02 | NUR ---
SW reviewed chart and spoke with nursing. Pt remains in Enhanced Isolation due to COVID-19. Pt is afebrile and on 2L of O2. Pt is on IV steroids/IV abx. Pt has dobhoff in place. Plan is for pt to return to [facility] when medically stable. SW is following to assist as needed with discharge planning.
[2020-07-04 17:03] VITALS: BP 143/54
[2020-07-04 17:11] LABS: HEMATOCRIT 21.8 % (37.0-47.0); MCH 26.3 pg (26.0-34.0); MCHC 31.9 g/dL (28.0-37.0); MCV 82.3 fL (80.0-100.0); RBC 2.65 mil/uL (4.20-5.00); RDW 17.4 % (10.5-14.5); WBC 13.4 thou/uL (4.0-11.0)
[2020-07-04 17:22] LABS: APTT 31.5 Seconds (24.5-32.8); INR 1.2; PROTIME 11.8 Seconds (9.3-11.4)
[2020-07-04 17:29] LABS: DIRECT BILIRUBIN 0.2 mg/dL (<0.1-0.2); TOTAL BILIRUBIN 0.3 mg/dL (0.2-1.0); TOTAL PROTEIN 5.9 g/dL (6.4-8.2)
--- NOTE | 2020-07-04 18:43 | NUR ---
STARTED ARAGATROBAN IV AT 17:32 ALL LABS ON PROYOCOL aPPT PT INR CBC LFTs done PUT ORDER IN FOR aPTT IN 2 HOURS. WILL PASS STANDING ORDER SHEET ON TO NIGHT NURSE.
[2020-07-04 19:58] VITALS: BP 122/45
--- NOTE | 2020-07-05 03:49 | NUR ---
afebrile this shift. is to visit [facility]. no changes. continues on the anticoagulent. dressing changed to the rt arm, with kerlix and deandre bandage. contiues to have edema to bilateral upper extremities. careplan reviewed.
[2020-07-05 04:30] VITALS: BP 138/45
[2020-07-05 06:01] LABS: MCV 82.7 fL (80.0-100.0)
[2020-07-05 06:04] LABS: HEMATOCRIT 20.1 % (37.0-47.0); HEMOGLOBIN 6.5 gm/dL (12.0-15.0); MCH 26.6 pg (26.0-34.0); MCHC 32.2 g/dL (28.0-37.0); RBC 2.43 mil/uL (4.20-5.00); RDW 17.5 % (10.5-14.5); WBC 11.5 thou/uL (4.0-11.0)
[2020-07-05 06:38] LABS: CALCIUM 7.7 mg/dL (8.5-10.1); PHOSPHORUS 3.7 mg/dL (2.5-4.9); POTASSIUM 3.5 mmol/L (3.5-5.1)
[2020-07-05 07:36] VITALS: BP 100/37
--- NOTE | 2020-07-05 09:45 | NUR ---
Nutrition: Now that pt out of ICU, protein needs are revised. REC change tube feeding formula to Glucerna 1.2 at 65 mL/hr to prevent excessive protein provisions in setting of kidney issues but adequate for wound healing.
[2020-07-05 11:42] VITALS: BP 107/50
[2020-07-05 15:19] VITALS: BP 109/42
--- NOTE | 2020-07-05 16:27 | NUR ---
SW reviewed chart and spoke with nursing. Pt remains in Enhanced Isolation due to COVID-19. Pt is afebrile and on 2L of O2. Pt is on IV steroids/IV abx. Pt has dobhoff in place. Plan is for pt to return to [facility] when medically stable. [facility] is not anticpated. DARELL is following to assist as needed with discharge planning.
--- NOTE | 2020-07-05 19:18 | NUR ---
PT'S RECTAL TUBE OUT NIGHT NURSE STATES WILL LEAVE OUT FOR AWHILE AND THEN REPLACE.
[2020-07-05 20:45] VITALS: BP 111/47
[2020-07-06 03:34] VITALS: BP 115/42
[2020-07-06 07:29] VITALS: BP 110/42
[2020-07-06 07:42] LABS: MCH 27.2 pg (26.0-34.0); MCHC 32.1 g/dL (28.0-37.0); MCV 84.6 fL (80.0-100.0); RBC 2.15 mil/uL (4.20-5.00); RDW 17.2 % (10.5-14.5); WBC 10.2 thou/uL (4.0-11.0)
[2020-07-06 07:46] LABS: HEMATOCRIT 18.2 % (37.0-47.0); HEMOGLOBIN 5.8 gm/dL (12.0-15.0)
[2020-07-06 11:41] VITALS: BP 112/42
[2020-07-06 15:04] VITALS: BP 134/52
[2020-07-06 18:46] VITALS: BP 116/50; BP 152/64
--- NOTE | 2020-07-06 18:52 | NUR ---
PT HAS RESTED IN BED THROUGH THE DAY. SHE WILL OPEN HER EYES TEMPORAORY AND THEN GO BACK TO SLEEP. FAMILY CAME TO HOSPITAL TODAY WORRIED PATIENT WAS TERMINAL. CALLED FAMILY USING FACETIME AND THE SPOKE WITH PATIENT WHO SLEPT MOST OF THE TIME. HGB WAS LOW THIS AM AND TRANSFUSION INITIATED THIS PM. PATIENT NOTED TO HAVE VERY DARK BROWN LOOSE STOOLS. WILL CONT TO MONITOR HGB POST TRANSFUSION.
[2020-07-06 19:30] VITALS: BP 117/51
[2020-07-07 00:48] LABS: HEMATOCRIT 21.9 % (37.0-47.0); HEMOGLOBIN 7.1 gm/dL (12.0-15.0)
--- NOTE | 2020-07-07 03:11 | NUR ---
PT LYING IN BED. NONVERBAL. NO APPARENT PAIN. FREQUENT OBSERVATION.
[2020-07-07 04:29] VITALS: BP 120/55
[2020-07-07 05:56] LABS: HEMATOCRIT 22.1 % (37.0-47.0); MCH 27.3 pg (26.0-34.0); MCHC 31.8 g/dL (28.0-37.0); MCV 85.8 fL (80.0-100.0); RBC 2.57 mil/uL (4.20-5.00); RDW 17.1 % (10.5-14.5)
[2020-07-07 06:15] LABS: DIRECT BILIRUBIN 0.1 mg/dL (<0.1-0.2); TOTAL BILIRUBIN 0.3 mg/dL (0.2-1.0); TOTAL PROTEIN 5.7 g/dL (6.4-8.2)
[2020-07-07 06:49] LABS: ALBUMIN 1.1 g/dL (3.4-5.0); CALCIUM 7.3 mg/dL (8.5-10.1); CREATININE 2.6 mg/dL (0.6-1.0); PHOSPHORUS 4.7 mg/dL (2.5-4.9); POTASSIUM 3.5 mmol/L (3.5-5.1)
[2020-07-07 08:25] VITALS: BP 129/52
[2020-07-07] MEDS ORDERED: CARDIZEM CD120 MG PO (08:38)
--- NOTE | 2020-07-07 10:18 | NUR ---
covid +, discussed during prime time via phone call, hospitalist possible going to discuss with family goal of care and comfort care. will cont following as needed for dc needs.
[2020-07-07 11:40] VITALS: BP 121/51
--- NOTE | 2020-07-07 14:20 | NUR ---
ASSUMED PATIENT CARE THIS AM AT APPRXOMATELY 0700. PATIENT AWAKE, OPENS EYES. ABLE TO ANSWER SOME QUESTIONS BUT DISORIENTED X4. NO ACUTE DISTRESS NOTED AT THIS TIME. O2 SAT STABLE ON 2LNC. TOLERATING TUBE FEEDING. HAVING LOOSE BMS DRESSING CHANGED TO RIGHT ARM THIS SHIFT. PATIENT TURNED Q2H AND PRN. HEEL PROTETOR BOOTS IN PLACE AND HEELS OFFLOADED ON PILLOW. ZGUARD APPLIED TO ALL OPEN AREAS ON HER BOTTOM. PAIN WITH TURNING. SOME ANXIETY NOTED AFTER TURNING PATIENT AND PATIENT GIVEN ATIVAN X1 THIS SHIFT FOR ANXIETY. DRESSING TO RIGHT CENTRAL LINE INTACT WITH MINIMAL SEROUS DRAINAGE. PATIENT FAMILY ABLE TO SPEAK WITH HER THIS SHIFT VIA FACETIME.
[2020-07-07 16:00] VITALS: BP 127/57
[2020-07-07 20:55] VITALS: BP 115/50
[2020-07-08 03:40] VITALS: BP 96/32
[2020-07-08 04:20] VITALS: BP 106/43
[2020-07-08 05:54] LABS: MCH 27.9 pg (26.0-34.0); MCHC 32.5 g/dL (28.0-37.0); MCV 85.7 fL (80.0-100.0); RBC 2.28 mil/uL (4.20-5.00); RDW 17.3 % (10.5-14.5); WBC 11.8 thou/uL (4.0-11.0)
[2020-07-08 05:59] LABS: HEMOGLOBIN 6.4 gm/dL (12.0-15.0)
[2020-07-08 06:00] LABS: HEMATOCRIT 19.5 % (37.0-47.0)
--- NOTE | 2020-07-08 06:07 | NUR ---
Pt. has been repositioned for comfort. She screams when being turned. Able to state her name. Lorazepam given to help with anxiety. She eventually calm down later on. Maintaining O2 sat up to 100% on 2L/NC. No respiratory distress. Cont. on enhanced precaution , afebrile. Kept NPO per order , oral care done. Tube feeding changed to Glucerna 1.2 at 65 ml/hr per reg. dietitian's recommendation. DISTANCE LEARNING COORDINATOR notified and gave the order. Critical H&H also reported to her. Will verify with daughter per DISTANCE LEARNING COORDINATOR's request to make sure pt. is a Jehova's witness. Attempted to call daughter , unavailable and unable to leave a message. Fecal tube leaking , cleaned for incontinence and z guard applied to excoriated buttocks. Pt. rested well for the most part.
[2020-07-08 07:43] VITALS: BP 119/50
[2020-07-08] MEDS ORDERED: CEFEPIME 1 GM VI1 G2 INJECTION (08:58)
[2020-07-08 11:24] VITALS: BP 111/37
[2020-07-08 15:27] VITALS: BP 123/41
--- NOTE | 2020-07-08 16:15 | NUR ---
DARELL reviewed chart and spoke with nursing and attending physician. Discharge orders/summary written today. Pt has dobhoff in place. Palliative care physician consulted to discuss plan of care with pt's family. SW updated [place] post-acute liaison. DARELL is following to assist as needed with discharge planning.
--- NOTE | 2020-07-08 19:13 | NUR ---
ASSUMED PATIENT CARE AT 0700. OPEN EYE TO COICE. GENERLIZED EDEMA. TOLERATED TF. FMS LEEKING. WOUND CARE PER ORDER. NOT TOWARDS POC GOALS.
[2020-07-08 19:38] VITALS: BP 114/44
--- NOTE | 2020-07-09 03:59 | NUR ---
Patient is not making any progress towards outcome goals. Vital signs and rhythm stable. Dr Juarez consulted for palliative care. Tolerating tube feedings. IV fluids infusing. Total patient care. Turned to sides.
[2020-07-09 04:16] VITALS: BP 95/34
[2020-07-09 07:34] VITALS: BP 116/40
[2020-07-09 11:31] VITALS: BP 126/53
--- NOTE | 2020-07-09 13:36 | NUR ---
DARELL reviewed chart and spoke with nursing and attending physician. Pt is in Enhanced Isolation due to COVID-19. Repeat test on 07/05 is positive. Pt is afebrile and on 2L of O2. Pt has dobhoff in place. Palliative physician consulted to discuss plan of care with pt's family. data processing systems project planner to fax clinical updates to [facility] for review. DARELL updated [place] post-acute liaison. DARELL is following to assist as needed with discharge planning.
[2020-07-09 15:32] VITALS: BP 122/46
--- NOTE | 2020-07-09 15:41 | NUR ---
FAXED CLINICAL UPDATE TO [facility] SPOKE WITH NANCIE IN ADM SHE RECEIVED UPDATE. DP TO FOLLOW.
--- NOTE | 2020-07-09 18:21 | NUR ---
ASSSUMED PATIENT CARE AT 0700. AWAKE. NOTED INCREASED GENERLIZED EDEMA. INCREASED RR TO 24/M. AFEBRILE. VSS. FMS LEEKING. WOUND CARE PER ORDERS. UPDATE WITH PATIENT'S DAUGHTER (ANA LUISA FOREMAN) PATIENT'S CONDITION. ANA LUISA SAID SHE IS NOT READY FOR HER MOM GO HOSPICE. SHE NEEDS 7 DAYS. UPDATE WITH SW ALSO. PATIENT NOT TOWARDS POC GOALS.
[2020-07-09 19:07] VITALS: BP 118/53
[2020-07-10 03:30] VITALS: BP 94/51
--- NOTE | 2020-07-10 06:46 | NUR ---
FOLLOWING POC WITH Q2 TURNS. PT ALSO HAS LOW LOSS AIR PUMP. D5 INFUSING AT 125ML. VSS, NO FEVERS OVERNIGHT. ISOLATION AND FALL PRECAUTIONS IN PLACE.
--- NOTE | 2020-07-10 11:38 | NUR ---
Nutrition: Pt with dobhoff nearly 2 weeks. REC determine further POC-oral diet vs hospice vs PEG.
--- NOTE | 2020-07-10 13:07 | NUR ---
SW reviewed chart and spoke with nursing. Pt remains in Enhanced Isolation due to COVID-19. Pt is afebrile and on 2L of O2. Pt has dobhoff in place. Nursing notified SW that palliative care physician did speak with pt's dtr. Family is not ready for hospice at this time. SW provided update to [place] post-acute liaison. DARELL is following to assist as needed with discharge planning.
[2020-07-10 13:51] LABS: HEMATOCRIT 19.2 % (37.0-47.0); HEMOGLOBIN 6.3 gm/dL (12.0-15.0)
[2020-07-10 13:55] LABS: CALCIUM 7.3 mg/dL (8.5-10.1); CREATININE 1.8 mg/dL (0.6-1.0); POTASSIUM 3.5 mmol/L (3.5-5.1)
[2020-07-10 15:50] VITALS: BP 118/43
--- NOTE | 2020-07-10 19:18 | NUR ---
PT APPEARED MORE ALERT TODAY. RESPONDING TO NURSE, NOTED SMILING AND THEN CRYING OUT TO HER MOTHER. SPOKE WITH GRAND DAUGHTER WHO SAID PT IS A MORMONISM AND WILL ACCEPT BLOOD TRANSFUSION. DR MUNGUIA NOTIFIED OF NEW NUMBER TO REACH PATIENT AND HE CALLED FAMILY. AFTER TALKING TO FAMILY DR MUNGUIA CALLED NURSE AND NOTIFIED NURSE THAT PATIENT'S FAMILY WILL LIKE TO HAVE AN PEG TUBE PLACED IF PATIENT IS NOT EATING. DR AYAN ZEPEDA. WILL CONT WITH PLAN OF CARE.
[2020-07-10 20:39] VITALS: BP 116/51
[2020-07-10 22:14] VITALS: BP 121/46; BP 121/49
[2020-07-11 04:44] VITALS: BP 129/64
[2020-07-11 06:04] LABS: HEMATOCRIT 23.6 % (37.0-47.0); HEMOGLOBIN 7.9 gm/dL (12.0-15.0); MCH 28.4 pg (26.0-34.0); MCHC 33.4 g/dL (28.0-37.0); RBC 2.78 mil/uL (4.20-5.00); RDW 17.6 % (10.5-14.5)
--- NOTE | 2020-07-11 06:36 | NUR ---
PT BECOMING MORE ALERT. TALKING AND SINGING SONGS, WELL CALLING OUT FOR MOMMA. FOLLOWING POC AND GAVE I UNIT OF PRBC WITH NO REACTIONS. AWAITING H/H. ISOLATION AND FALL PRECAUTIONS IN PLACE. Q2 TURNS THAT MAKE PT UNHAPPY.
[2020-07-11 07:00] LABS: CALCIUM 7.4 mg/dL (8.5-10.1); POTASSIUM 3.8 mmol/L (3.5-5.1)
[2020-07-11 07:29] VITALS: BP 113/63
[2020-07-11 11:35] VITALS: BP 115/59
--- NOTE | 2020-07-11 13:16 | NUR ---
SW reviewed chart and spoke with nursing. Pt remains in Enhanced Isolation due to COVID-19. Pt is afebrile and on 2L of O2. Pt is more alert today. ST consulted to evaluate pt to see if pt can be started on a diet. Per nursing, pt's family are agreeable with peg tube placement, if pt is unable to tolerate a diet. SW provided update to [place] post-acute liaison. SW is following to assist as needed with discharge planning.
[2020-07-11 16:23] VITALS: BP 136/122
--- NOTE | 2020-07-11 18:32 | HC ---
[facility] [place] [address] CONSULTATION Name: TERESA MACIEL Room #: 358- ADM IN M.R.#: [id number] Admission: 06/25/20 Attend Phys: Caleb Vasquez MD Discharge: Date of : 40 Report #: [id number] THIS REPORT FOR: cc: Winston Tran,Irma Skinner MD ~ CC: Caleb Tran DATE OF SERVICE: 06/27/2020 REASON FOR CONSULTATION: Acute kidney injury. REASON FOR PRESENTATION: Shortness of breath. HISTORY OF PRESENT ILLNESS: Very limited as the patient is very confused and not able to provide me with any details. She was brought from her nursing facility because of shortness of breath with desaturation and a pulse ox of 90%. This was while she was on 3 liters by nasal cannula. Apparently, the patient has history of cognitive deficit. She resides in a nursing facility. She has bipolar disorder with diabetes mellitus and hypertension. We do not know what her baseline kidney function is. We were consulted to manage her acute kidney injury and rising creatinine at 3.2 as of yesterday. The patient was extremely hypotensive on arrival, requiring IV fluid and pressors. She was admitted to the ICU. She had one test positive for COVID-19 viral infection. PAST MEDICAL HISTORY: Obtained from the medical chart. 1. Diabetes mellitus. 2. Hypertension. 3. Cognitive deficit. 4. COPD. MEDICATIONS: From the nursing facility. 1. Clonidine. 2. Lasix. 3. Levothyroxine. 4. Potassium. 5. Topiramate. 6. Insulin. 7. Hydralazine. 8. Eliquis. ALLERGIES: None. PAST SURGICAL HISTORY: Unobtainable given the patient's current mental status. [facility] [address] [place] [address] CONSULTATION Name: TERESA MACIEL Room #: 358-P [facility] IN [facility].#: [id number] Admission: 06/25/20 Attend Phys: Caleb Vasquez MD Discharge: Date of : 40 Report #: [id number] REVIEW OF SYSTEMS: Unobtainable given the patient's current mental status. FAMILY HISTORY: Unobtainable given the patient's current mental status. PHYSICAL EXAMINATION: GENERAL: The patient is confused. VITAL SIGNS: Blood pressure is 97/51. She is maintained on Levophed. HEAD AND NECK: No jugular venous distention. CHEST: Rhonchi are present bilaterally. CARDIOVASCULAR: No rub detected. ABDOMEN: Soft, nontender. EXTREMITIES: Lower extremities, no edema. LABORATORY DATA: White blood cell count 18.2, hemoglobin 8.4. Blood gas with a pH of 7.2. Chemistry from yesterday revealed a sodium of 144, potassium of 3.4, chloride of 112, carbon dioxide of 10, BUN of 43, creatinine is 2.8. UA loaded with bacteria and white blood cells. Blood culture positive for strep group A. ASSESSMENT, IMPRESSION AND PLAN: 1. Acute kidney injury. 2. Septic shock with group A beta Streptococcus. 3. COVID-19 infection. 4. Atrial fibrillation with rapid ventricular response. 5. Hypokalemia. 6. Metabolic acidosis. 7. Cognitive dysfunction. 8. Bipolar disorder. 9. Hypothyroidism. 10. Diabetes mellitus. 11. The patient's acute kidney injury is well explained by her current septic event. She is growing beta strep group A in her blood contributing to hypotension and septic shock. This will need to be addressed by the primary team. ID consultation will be needed. 12. Continue IV fluid; however, this was reformulated to address her metabolic acidosis. 13. Continue hemodynamic support. 14. Continue pressors. 15. Watch electrolytes. 16. Blood sugar control. 17. Atrial fibrillation management per primary team. 18. Her creatinine has already started to trend down; however, we need to pay [facility] [address] [place] [address] CONSULTATION Name: TERESA MACIEL Room #: 358-P [facility] IN .R.#: [id number] Admission: 06/25/20 Attend Phys: Caleb Vasquez MD Discharge: Date of : 40 Report #: [id number] close attention to her electrolytes, urine output, hemodynamics with good blood pressure support to assure continued improvement of her renal function. <ELECTRONICALLY SIGNED> By: Irma Hooker MD 07/11/20 1832 [id number] Irma Hooker MD /nt
[2020-07-11 19:30] VITALS: BP 110/42
[2020-07-12] VITALS (7 sets, daily range): BP systolic 111–160; BP diastolic 45–72
--- NOTE | 2020-07-12 03:34 | NUR ---
PATIENT IS A/O TO PERSON. DENIES SOB. C/O PAIN. REPOSITIONED Q2H. BATH PROVIDED. RIOS IN PLACE WITH GOOD URINE U/O. AFEBRILE. TOLERATING TUBE FEEDS. VSS. DENIES NEEDS. WILL KEEP MONITORING.
[2020-07-12 10:39] LABS: HEMATOCRIT 22.4 % (37.0-47.0); HEMOGLOBIN 7.5 gm/dL (12.0-15.0); MCH 28.3 pg (26.0-34.0); MCHC 33.2 g/dL (28.0-37.0); MCV 85.1 fL (80.0-100.0); RBC 2.63 mil/uL (4.20-5.00); RDW 18.2 % (10.5-14.5)
[2020-07-12 10:51] LABS: CREATININE 1.8 mg/dL (0.6-1.0); POTASSIUM 4.3 mmol/L (3.5-5.1)
--- NOTE | 2020-07-12 15:22 | NUR ---
SW reviewed chart and spoke with nursing. Pt remains in Enhanced Isolation due to COVID-19. ST is working with pt to see if she is able to tolerate a diet. Dobhoff in place as well. Pt's family agreeable with peg tube placement if needed. No weekend discharge planned. DARELL updated [place] post-acute liaison. DARELL is following to assist as needed with discharge planning.
--- NOTE | 2020-07-12 18:33 | NUR ---
PER SPEECH PATIENT WILL MOST LIKELY NEED PEG TUBE PLACED. DR BENNETT WAS NOTIFIED AND SHE SPOKE WITH SON. SON TOLD DR BENNETT HE WILL CALL SISTER AND CONFIRM IF THEY NEED PEG TUBE. FAMILY HAD ALREADY AGREED TO PEG TUBE PLACEMENT PREVIOUSLY WITH DR MUNGUIA. WILL RELAY THIS INFO TO DR BENNETT. SHE STILL HAS DOBHUFF. RECTAL TUBE WAS TAKEN OUT AND MINIMAL STOOLS NOTED. WOUND CARE PROVIDED THROUGH THE DAY. WILL CONT WI PLAN OF CARE.
--- NOTE | 2020-07-13 05:35 | NUR ---
ASSUMED PT CARE AROUND 1930. ALERT AND AWAKE. MUMBLES WORDS. UNABLE TO FOLLOW COMMANDS AT THIS TIME. DOBHOFF INTACT WITH TUBE FEEDING RUNNING WITHOUT DIFFICULTY. VSS. NO S/S ACUTE DISTRESS NOTED OR REPORTED AT THIS TIME. WILL CONT TO MONITOR FOR ANY CHANGES IN CONDITION.
[2020-07-13 07:32] VITALS: BP 111/44
[2020-07-13 11:43] VITALS: BP 115/50; BP 92/33
[2020-07-13 15:37] VITALS: BP 109/45
[2020-07-13 19:32] VITALS: BP 131/63
--- NOTE | 2020-07-13 22:03 | NUR ---
PT RESTING IN BED LISTENING TO TV ANIMAL SHOW. PT EYES FOLLOW NURSE SHE TALKS AND COMPLETES TASKS. RIOS TO DD, GUIDO INTACT. PT SPORADICALLY YELLS MAMA OR SCREAMS EVEN WHEN STAFF NOT REPOSITIONING HER. GENERALIZED AND BLE EDEMA. PRAFO SCDS INTACT. NC INTACT. BED ALARM ON. MOUTH CARE PROVIDED.
--- NOTE | 2020-07-14 01:53 | NUR ---
PT HAS PROJECTILE LIQUID STOOL WHEN TURNING. OPEN RED AREAS REMAIN UNDER R BREAST AND ALL OVER GLUTEAL AREA, ZGUARD APPLIED. PT AWAKENED AND STARTED YELLING OUT, NOT ABLE TO BE VERBALLY REDIRECTED OR DISTRACTED PRN FOR ANXIETY PROVIDED.
--- NOTE | 2020-07-14 02:19 | NUR ---
CONTINUED YELLING AND SCREAMING FOR 45 MINUTES, NOT ABLE TO BE DISTRACTED OR REDIRECTED. PRN FOR AGITATION PROVIDED.
[2020-07-14 05:59] VITALS: BP 122/42
--- NOTE | 2020-07-14 06:31 | NUR ---
PT DID RELAX AFTER PRN FOR AGITATION WITH A DECREASE IN INTERMITTENT YELLING AND SCREAMING OUT WITH EPISODES OF SLEEPING.
[2020-07-14 08:03] VITALS: BP 11/43
--- NOTE | 2020-07-14 09:30 | NUR ---
GENERAL SURGERY ROUNDS. STATES PT IS MOST LIKELY NOT GOING TO GET A PEG TUBE TOMORROW. PHYSICIAN IS GOING TO TALK WITH HIS ASSOCIATE TOMORROW AND IT WILL BE MOST LIKELY WEDNESDAY FOR PEG IF FAMILY AGREES TO PROCEDURE.
[2020-07-14 11:14] VITALS: BP 134/101
--- NOTE | 2020-07-14 12:26 | NUR ---
CALLED AND TALKED WITH DR. PENNY PATELING PT BLOOD SUGAR AND NPH INSULIN. STATES TO NOT GIVE. SHE WILL ADJUST ORDERS.
--- NOTE | 2020-07-14 15:00 | NUR ---
DOBHOFF CATHETER CLOGGED. UNABLE TO GET TO FLUSH. DOBHOFF REMOVED INTACT. NEW DOBHOFF PLACED TO RIGHT NARE. SECURED @ 55CM. XRAY ORDERED
--- NOTE | 2020-07-14 15:20 | NUR ---
BLOOD SUGAR TAKEN. GLUCOSE @ 60. 4OZ OF APPLE JUICE GIVEN VIA DOBHOFF. RECHECKED BLOOD SUGAR UP TO 68. WILL TREAT VIA IV
[2020-07-14 16:28] VITALS: BP 131/68
--- NOTE | 2020-07-14 16:45 | NUR ---
ATTEMPTED TO CALL DAUGHTER TO DISCUSS PEG TUBE. NO ANSWER
--- NOTE | 2020-07-14 18:00 | NUR ---
1 AMP D50 GIVEN VIA IVP. WILL CHECK SUGAR IN 15 MIN.
--- NOTE | 2020-07-14 18:15 | NUR ---
BLOOD GLUCOSE NOW 158
[2020-07-14 19:58] VITALS: BP 129/54
--- NOTE | 2020-07-14 21:42 | NUR ---
PT RESTING IN BED, LISTENING TO TV. ALERT TO SELF. PT HAS INTERMITTENT EPISODES OF SCREAMING/YELLING OUT WHEN STAFF ARE PRESENT IN ROOM AND WHEN THEY ARE NOT. TFEEDING TO DOBHOFF INTACT, RIOS TO DD, PRAFO INTACT. STAFF REPOSITIONING. REMAINS INCONTINENT OF STOOL. BARRIER CREAM TO COCCYX WOUNDS. BED ALARM ON.
[2020-07-15 03:17] VITALS: BP 131/56
[2020-07-15 07:53] VITALS: BP 112/76
--- NOTE | 2020-07-15 13:43 | NUR ---
SW reviewed chart and spoke with nursing and attending physician. Pt remains in Enhanced Isolation due to COVID-19. Repeat COVID test ordered today. GI consulted for peg tube placement. Pt has dobhoff in place. DARELL spoke with pt's son, Howard, via phone to discuss discharge timeframe. Pt's son is agreeable with pt returning to [facility] when ready for discharge. However, Howard and family would like for pt to go to another facility. SW explained barrier to finding a new facility that will accept a new COVID positive resident into their facility. Pt's son verbalized understanding. SW to contact a few facilities to see if any are accepting new COVID pts. SW faxed clinical updates to [place] post-acute liaison for review. DARELL is following to assist as needed with discharge planning.
--- NOTE | 2020-07-15 19:28 | NUR ---
RN HAS ASSUMED PT'S CARE AT 0700AM, PT OPENS HER EYES BY VOICE , PT KNOWS HER NAME , PT CAN FOLLOW SOME COMMANDS, PT IS CONTINUING WOUND CARE AND ISOLATION ( POSITIVE COVID AT 07/05 AND 06/14/20), PT IS OFF O2 AT ROOM AIR , PT'S O2SAT STAIES AT 94-96%, PT'S VS ARE STABE .
[2020-07-15 19:33] VITALS: BP 112/52
[2020-07-16 04:29] VITALS: BP 112/52
--- NOTE | 2020-07-16 06:24 | NUR ---
ASSUMED CARE OF PT AT 1900HRS. PT AOX1 AND CAN FOLLOW SIMPLE DIRECTIONS. FALL PRECAUTION IN PLACE. RIOS IN PLACE AND IS PATIENT. FECAL MGT SYS IN PLACE. TF AT GOAL RATE. RUE ELEVATED. PT TURNED Q2-3H. PT ON RA NOW AND STABLE. PT APPEARS TO BE COMFORTABLE AND SLEPT PART OF THE SHIFT. NPO MAINTAINED. ORAL CARE PROVIDED. NO S/S OF ACTE DISTRESS. WILL CONTINUE TO MONITOR.
[2020-07-16 07:51] VITALS: BP 109/53
[2020-07-16 11:12] VITALS: BP 121/46
--- NOTE | 2020-07-16 14:02 | HC ---
[facility] [place] [address] CONSULTATION Name: TERESA MACIEL Room #: 358-[facility] IN M.R.#: [id number] Admission: 06/25/20 Attend Phys: Caleb Vasquez MD Discharge: Date of : 40 Report #: [id number] THIS REPORT FOR: cc: Winston Tran,Mika Ruff MD ~ CC: Caleb Tran GASTROINTESTINAL CONSULTATION HISTORY OF PRESENT ILLNESS: The patient is a 79-year-old patient with altered mental status, who I have been asked to see for possible placement of a percutaneous endoscopic gastrostomy tube. She had COVID and has been in the hospital for over 2 weeks. I did not evaluate the patient or examined the patient as the patient still has COVID. I did ask her nurse about her current status, which includes 1 liter of oxygen, altered mental status and no other significant current complications. Her medical history is well-outlined in the chart. Her current medical problems related to her admission include COVID, COPD exacerbation, stage 3 pressure ulcer, encephalopathy, chronic renal insufficiency and acute renal insufficiency, hypernatremia, group A strep bacteremia, AFib, anemia, diabetes, hypothyroidism. She has had a nasogastric feeding tube since admission. Medical history otherwise can be seen in the chart. CURRENT MEDICATIONS: Currently include albuterol, diltiazem, insulin, risperidone, lorazepam, gentamicin, metoprolol, buspirone, topiramate, mirtazapine, pantoprazole, magnesium sulfate, levothyroxine, insulin. FAMILY HISTORY: Noncontributory. SOCIAL HISTORY: Noncontributory. REVIEW OF SYSTEMS: Unreliable and the patient was not interviewed. PHYSICAL EXAMINATION: Not performed. VITAL SIGNS: Afebrile, vital signs are stable. PERTINENT LABORATORY DATA: Include hemoglobin 7.5, MCV 85, RDW 18.2, platelet count 228. INR 1.2. She is COVID positive x2. IMAGING: Left pleural effusion on chest x-ray, bilateral infiltrates, widespread. ASSESSMENT: In summary, the patient requires long-term feeding and nutritional support. The family has requested a percutaneous endoscopic gastrostomy tube placement to simplify her care as she has required nasogastric tube feeding [address] [address] CONSULTATION Name: TERESA MACIEL Room #: [facility] IN .R.#: [id number] Admission: 06/25/20 Attend Phys: Caleb Vasquez MD Discharge: Date of : 40 Report #: [id number] since admission. We will plan on EGD, PEG after discussion with the family. With her altered mental status, there will be a concern for PEG dislodgement and a binder would be recommended 10/05. Problem with a dislodged PEG in a patient in the first 30 days could require surgery. We will follow along. Thank you for allowing us to participate in her care. <ELECTRONICALLY SIGNED> By: Jackson Hatfield MD 07/16/20 1402 0951 [id number] Mika Roth MD /nt
--- NOTE | 2020-07-16 14:34 | NUR ---
DARELL reviewed chart and spoke with nursing and attending physician. Pt remains in Enhanced Isolation due to COVID-19. Pt's repeat test yesterday was positive. Pt to have peg tube placed tomorrow. DARELL spoke with pt's son, Howard, via phone to provide update and discuss discharge plans. DARELL had contacted several other facilities, who state they are able to review and possible accept new COVID pts: [facility], [facility] and [facility]. These options provided to pt's son. Pt's son would like referrals to be sent to [facility] and [facility]. [facility] would be too far away from family. Pt's son is agreeable with pt returning to [facility] if alternate placement cannot be established prior to discharge. DARELL faxed referrals. Spoke with Estelle in admissions at [facility] and Sulma in admissions at [facility]. Awaiting input from facilities at this time. DARELL updated [place] post-acute liaison as well. DARELL is following to assist as needed with discharge planning.
[2020-07-16 15:14] VITALS: BP 109/54
[2020-07-16 19:54] VITALS: BP 128/50
[2020-07-17] VITALS (7 sets, daily range): BP systolic 103–142; BP diastolic 55–71
[2020-07-17 06:47] LABS: HEMOGLOBIN 6.9 gm/dL (12.0-15.0)
[2020-07-17 06:49] LABS: HEMATOCRIT 21.2 % (37.0-47.0); MCH 28.4 pg (26.0-34.0); MCHC 32.4 g/dL (28.0-37.0); MCV 87.6 fL (80.0-100.0); RBC 2.43 mil/uL (4.20-5.00); RDW 18.8 % (10.5-14.5); WBC 4.3 thou/uL (4.0-11.0)
[2020-07-17 07:08] LABS: CALCIUM 7.9 mg/dL (8.5-10.1); CREATININE 1.9 mg/dL (0.6-1.0); POTASSIUM 4.3 mmol/L (3.5-5.1)
--- NOTE | 2020-07-17 07:10 | NUR ---
PROGRESS PT ALERT BUT ORIENTED TO SELF CALLING OUT FOR HER MOMMA..REPOSITIONED Q2HRS, WOUND TO COCCYX DRAINING LARGE AMOUNT OF SEROSANGUINOUS FLUID, CLEANSED AND REDRESSED, FECAL MANAGEMENT SYSTEM INTACT DRAINING WATERY YELLOWISH STOOL, RIOS CATHETER IN PLACE DRAINING MODERATE AMOUNT OF DARK YELLOW URINE. ORAL CARE PROVIDED AND MOUTH SWABS FOR COMFORT.
--- NOTE | 2020-07-17 10:55 | NUR ---
PT WAS ORDERED PRBC TODAY, BLOOD TRANSFUSION OCCURING NOW, SECOND VERIFICATION DONE BY KARLOS LI. NO REACTION DURING THE FIRST 15 MINUTES OF TRANSFUSION, CENTRAL LINE BEING UTILIZED FOR TRANSFUSION. PT IS PLANNED TO GO IN FOR A PEG TUBE PLACEMENT TODAY. WOUND CARE HAS BEEN COMPLETED FOR THE DELPHINE. APPEARS TO BE HEALING WELL WITH DENUDING EPIDERMIS PRESENT. LORAZEPAM WAS GIVEN ONCE SINCE DURING DRESSING CHANGE PT WAS BEING VOCAL AND APPEARED TO BE IN DISTRESS. CONITNUING TO MONITOR. WILL UPDATE NECESSARY
--- NOTE | 2020-07-17 14:08 | NUR ---
DARELL reviewed chart and spoke with nursing and attending physician. Pt remains in Enhanced Isolation due to COVID-19. Pt is afebrile and not requiring O2. Pt having blood transfusion this morning and will have peg tube placed today. DARELL spoke with pt's son, Howard, via phone. [facility] and [facility] are both able to accept pt. Howard states there was miscommunication in the family and everyone is agreeable with pt returning to [facility] when medically stable. DARELL explained that discharge will be in 1-2 days. Howard verbalized understanding. DARELL updated [facility] post acute liaison, who confirms they are able to accept pt back. Will fax updates after peg tube placement and tube feeding orders have been written. DARELL left voice message for Sulma at [facility] and Estelle at [facility] to provide update. DARELL is following to assist as needed with discharge planning.
[2020-07-17 15:00] LABS: HEMATOCRIT 26.5 % (37.0-47.0); HEMOGLOBIN 8.6 gm/dL (12.0-15.0)
[2020-07-18] VITALS (10 sets, daily range): BP systolic 104–151; BP diastolic 47–81
--- NOTE | 2020-07-18 03:33 | NUR ---
Patient making slow progress towards outcome goals. NPO for peg placement. Vital signs and rhythm stable. Total care. Turned to sides.
[2020-07-18 05:51] LABS: HEMATOCRIT 26.6 % (37.0-47.0); HEMOGLOBIN 8.8 gm/dL (12.0-15.0); MCH 28.7 pg (26.0-34.0); MCV 86.9 fL (80.0-100.0); RBC 3.06 mil/uL (4.20-5.00); RDW 17.9 % (10.5-14.5); WBC 4.4 thou/uL (4.0-11.0)
--- NOTE | 2020-07-18 10:36 | NUR ---
CONSENT FORM OBTAINED VIA TWO RN VERBAL CONSENT. NO CHANGES FROM THE PT AT THIS TIME. Q2H TURNS BEING MAINTAINED. RN CONSULTED THE PHARMACIST TO SWITCH THE MEDICATION TO IV FORM, MOST MEDICATIONS HAVE BEEN ADMINISTERED IN THE NEW IV FORM EXCEPT FOR DILTIAZEM. PT HAS BEEN RUNNING STEADY RHYTHM AT A RATE OF 80/90s USUAL. RN DOES NOT SEE DILTIAZEM DRIP BEING FIT FOR THE PT AT THIS TIME. WILL CONTINUE TO MONITOR AND ADMINISTER NEEDED
--- NOTE | 2020-07-18 12:53 | P ---
[facility] [place] [address] PROCEDURE REPORT Name: TERESA MACIEL Room #: 358-P ADM IN M.R.#: [id number] Admission: 06/25/20 Attend Phys: Caleb Vasquez MD Discharge: Date of : 40 Report #: [id number] THIS REPORT FOR: cc: Winston Tran,Jackson Clark MD ~ CC: Caleb Tran DATE OF SERVICE: 07/17/2020 PROCEDURE PERFORMED: Upper endoscopy with attempted PEG tube placement. HISTORY OF PRESENT ILLNESS: The patient is a 79-year-old female with a history of COVID pneumonia, malnutrition, decubitus ulcers, currently receiving nutrition by [facility], request for PEG tube for long-term, more prison nutritional support. DESCRIPTION OF THE PROCEDURE: The risks and benefits of the procedure were explained to the patient's durable power of deputy county attorney, those risks including but not limited to bleeding, perforation and the risk of sedation as well as potential risk for infection. They understood these risks and gave informed consent. The procedure was performed in the operating room with propofol per anesthesia. The patient received 1 g of Ancef prior to the procedure. Next, using a standard Olympus upper endoscope, the scope was placed in the patient's mouth and advanced under direct vision through the esophagus, stomach and into the second portion of the duodenum. The esophagus was normal throughout. The GE junction was normal. There was a mild gastritis noted in the stomach, a few small fundic gland appearing polyps were noted, otherwise normal. The pylorus was normal and patent. The duodenal bulb, first and second portion were all normal. The scope was then brought back up into the patient's stomach and the stomach was fully insufflated with air. Unfortunately, not good transillumination was noted; however, with digital palpation, there was an area of very small transillumination. This site was then marked and cleaned with chlorhexidine solution and a sterile drape was put in place. Next, using a Xylocaine seeker needle, the needle was advanced under direct vision through the skin. However, even though I attempted 2 different passes, the needle was not seen in the gastric lumen. Because of the patient's size and the anatomy, I felt it was unlikely, we are going to be successful after 2 attempts. Therefore, no further attempts were made. At this point, the scope was then withdrawn and the procedure terminated. The patient tolerated the procedure well. IMPRESSION: 1. Mild gastritis with few fundic gland type polyps. [facility] [address] [place] [address] PROCEDURE REPORT Name: TERESA MACIEL Room #: 358-[facility] IN M.R.#: [id number] Admission: 06/25/20 Attend Phys: Caleb Vasquez MD Discharge: Date of : 40 Report #: [id number] 2. Otherwise, normal upper endoscopy. 3. Unsuccessful PEG tube placement as described above. RECOMMENDATIONS: Consult surgery for possible G-tube placement in the near future. Thank you for allowing me to participate in her care. <ELECTRONICALLY SIGNED> By: Jackson Hatfield MD 07/18/20 1253 1621 [id number] Jackson Hatfield MD /nt
--- NOTE | 2020-07-18 15:45 | NUR ---
DARELL reviewed chart and spoke with nursing. Pt remains in Enhanced Isolation due to COVID-19. Pt is afebrile and not requiring O2. Pt to have peg tube placed today in IR. DARELL faxed clinical updates and COVID test results to [facility] for review. DARELL updated [place] post-acute liaison. Discharge back to the facility is anticipated soon once pt is tolerating tube feeding. DARELL is following to assist as needed with discharge planning.
[2020-07-19 04:28] VITALS: BP 145/65
--- NOTE | 2020-07-19 06:38 | NUR ---
PROGRESS PT ALERT BUT CONFUSED, IVF'S INFUSING ORDERED. RIOS CATHETER IN PLACE DRAINING DARK YELLOW URINE, FMS DRAINING WATERY BROWN STOOL ONLY 100CC'S THIS SHIFT. REPOSITIONED Q2HRS. DRESSINGS TO RIGHT FOREARM, NEW PEG TUBE SITE WITH DRESSINGS THAT ARE C/D/I SOME DRAINAGE NOTED TO COCCYX DRESSING, LEFT NARE HAD A SCAB THAT FELL OFF AND BLEED WITH CARES CLEANSED AND GENTAMYCIN OINTMENT APPLIED. PEG TUBE CLAMPED WITH NO DRAINAIGE NOTED. VSS TELE INTACT READING SR WITH PAC'S SOME PVC'S BUT RATES IN THE 70'S TO 80'S. CONTINUE POC.
[2020-07-19 08:40] VITALS: BP 156/68
--- NOTE | 2020-07-19 10:50 | NUR ---
1050 - RECEIVED VERBAL ORDER/CLEARANCE FROM TO UTILIZE THE NEW J TUBE THAT WAS PLACED YESTERDAY. PER CNC FIELD SERVICE ENGINEER, VITAL 1.2 IS RECOMMENDED OVER GLUCERNA 1.2. SAME GOAL RATE OF 65ML/HR. RN PAGED TO COMMUNICATE THIS INFORMATION. WILL UPDATE NEEDED
--- NOTE | 2020-07-19 12:02 | NUR ---
Nutrition: REC D/C IVFs as pt has been ordered water flushes and has 2+ generalized edema. AMILCAR resolved.
--- NOTE | 2020-07-19 14:20 | NUR ---
DARELL reviewed chart and spoke with nursing and attending physician. Pt remains in Enhanced Isolation due to COVID-19. Pt is afebrile and not requiring O2. Pt had peg tube placed yesterday. Tube feeding starting today. Discharge back to [facility] is anticipated over the weekend, if pt tolerates tube feeding. DARELL faxed clinical updates, tube feeding recommendations and discharge orders/summary to [facility] for review. DARELL notified [place] post acute liaison. DARELL left voice messages for pt's son, Howard and grand dtr, Nafisa, to provide update and notify of anticipated discharge. DARELL received call back from pt's granddtr, Nafisa, who confirms plan is for pt to go to [facility]. Family would like for pt to remain at [facility] for detention care after skilled time and out of isolation. DARELL updated [place] post-acute liaison. Pt will need chart copied. Pt able to transport via stretcher van. DARELL is following to assist as needed with discharge planning. [facility]-- Latoya (liaison)--
[2020-07-19 16:41] VITALS: BP 139/68
[2020-07-19 21:08] VITALS: BP 144/69
[2020-07-20] VITALS (9 sets, daily range): BP systolic 106–148; BP diastolic 49–70
--- NOTE | 2020-07-20 07:35 | NUR ---
PROGRESS PT J TUBE INTACT JEVITY 1.2 INFUSING AT 65ML'S, IV INFUSING ANTIBIOTICS AND CARDIZEM DRIP AT 5ML'S HOUR HEART RATE DOWN INTO 80- TO 110'S. PT SLEEPING FECAL MAMAGEMENT SYSTEM LEAKING BUT COPIUS AMOUNTS LEAKED AND 500 CC'S EMPTIED, RIOS INTACT DRAINED 1000 CC'S 970 CC OF TUBE FEEDING AND 40 CC'S OF WATER FLUSHES AFTER MEDS TOLERATING WELL, THIS AM J TUBE DRSG SOILED. REPOSITIONED Q2HRS PROFO BOOTS IN PLACE CONTINUE POC PT TO DC TO [facility] TODAY,
--- NOTE | 2020-07-20 11:15 | EKG ---
[facility] [place] [address] ELECTROCARDIOGRAM REPORT Name: PATRICIA MACIELINE Room #: 358- ADM IN M.R.#: [id number] Admission: 06/25/20 Attend Phys: Caleb Vasquez MD Discharge: Date of : 40 Report #: [id number] THIS REPORT FOR: cc: Winston Tran James D. DO Santiago, Patrick MD [facility] ~ THIS REPORT FOR: //name// [facility] Test Date: 2020-07-20 Test Time: 02:43:19 Pat Name: TERESA MACIEL Department: Room: 358 P Gender: F Engine Testing Supervisor: [id number] : 1940 Requested By: Vicky Lopez Order Number: [id number] MD: Jerry Kraft Measurements Intervals [place] Rate: 115 P: 49 KS: 134 QRS: -62 QRSD: 88 T: 47 QT: 312 QTc: 432 Interpretive Statements Sinus tachycardia Sinus pause Anterolateral infarct, old Compared to ECG 06/26/2020 08:15:26 Sinus pause or arrest now present Myocardial infarct finding now present Ectopic atrial rhythm no longer present Poor R-wave progression no longer present Electronically Signed On 07-20-2020 11:15:12 CDT by Jerry Kraft [email or web address] <ELECTRONICALLY SIGNED> By: Jerry Kraft MD, FACC 07/20/20 1115 2 2 Jerry Kraft MD, [facility] /EPI
--- NOTE | 2020-07-20 11:34 | NUR ---
ASSUMED CARE APPROX 0700. PT AWAKE AND CONFUSED. PT IN NO APPARENT PAIN UNTIL WOUND CARE BEGAN. PT TO BE DISCHARGED TODAY BACK TO [facility]. WOUND CARE AND D/C WOUND PICTURES COMPLETED. ST ON TELE MONITOR. CARDIZEM GTT INFUSING PER ORDERS @5MG/HR. PT HR AND BP STABLE. PT ON ROOM AIR W/O SIGNS OF DISTRESS NOTED. TUBE FEEDINGS VITAL AF 1.2 TO BE TAKEN W/ PT @ D/C. DIETARY WILL BRING UP. COMMUNICATED D/C W/ CM AND SHE WILL COORDINATE TRANSPORTATION FOR PT. WILL CONTINUE TO MONITOR.
--- NOTE | 2020-07-20 12:28 | NUR ---
PT DISCHARGING TODAY TO [facility] FAXED DC ORDERS/SUMMARY TO FACILITY SPOKE WITH JULY IN ADM SHE RECEIVED ORDERS AND REQUESTING A DA-124 SHE WILL F/U WITH ADM LIASON AT FACILITY TO SEE IF SHE ALREADY RECEIVED ONE LEFT VM FOR PT'S DTR (ANA LUISA) OF DC AND TIME OF TRANSPORT. UNIT NOTIFIED AND CHART COPY PER US. TRANSPORT BY STRETCHER VAN FOR 1730 TODAY. RN TO CALL REPORT TO [phone].
== END 2020-07-20 17:30 | DRG 871 ==
LOC: ER 05:41 → EROBS 10:06 → ICU 10:06 → 3W 07-02 15:21
PROVIDERS: Anesthesiology; Emergency Medicine; Hospitalist; Internal Medicine; Internal Medicine Nephrology; Nurse Practitioner; Pediatrics; ADMIT Hospitalist; ATTEND Hospitalist
PROC: 05HN33Z Insertion of Infusion Device into Left Internal Jugular Vein, Percutaneous Approach (ICD-10-PCS; principal; 2020-06-25)
PROC: 02HV33Z Insertion of Infusion Device into Superior Vena Cava, Percutaneous Approach (ICD-10-PCS; principal; 2020-06-25)
PROC: XW13325 Transfusion of Convalescent Plasma (Nonautologous) into Peripheral Vein, Percutaneous Approach, New Technology Group 5 (ICD-10-PCS; 2020-06-27)
PROC: 30233N1 Transfusion of Nonautologous Red Blood Cells into Peripheral Vein, Percutaneous Approach (ICD-10-PCS; 2020-07-06)
PROC: 0DH68UZ Insertion of Feeding Device into Stomach, Via Natural or Artificial Opening Endoscopic (ICD-10-PCS; 2020-07-14)
PROC: 0DJ08ZZ Inspection of Upper Intestinal Tract, Via Natural or Artificial Opening Endoscopic (ICD-10-PCS; 2020-07-17)
PROC: 0DHA4UZ Insertion of Feeding Device into Jejunum, Percutaneous Endoscopic Approach (ICD-10-PCS; 2020-07-18)
DX: A41.9 Sepsis, unspecified organism (principal); L89.153 Pressure ulcer of sacral region, stage 3; U07.1 COVID-19; G93.41 Metabolic encephalopathy; J96.21 Acute and chronic respiratory failure with hypoxia; J18.9 Pneumonia, unspecified organism; R65.21 Severe sepsis with septic shock; E43 Unspecified severe protein-calorie malnutrition; J44.1 Chronic obstructive pulmonary disease with (acute) exacerbation; N17.9 Acute kidney failure, unspecified; I48.20 Chronic atrial fibrillation, unspecified; E87.2 Acidosis; N39.0 Urinary tract infection, site not specified; Z66 Do not resuscitate; F31.9 Bipolar disorder, unspecified; E03.9 Hypothyroidism, unspecified; D75.82 Heparin induced thrombocytopenia (HIT); F41.9 Anxiety disorder, unspecified; I10 Essential (primary) hypertension; E87.6 Hypokalemia; R23.4 Changes in skin texture; L30.4 Erythema intertrigo; L89.520 Pressure ulcer of left ankle, unstageable; L89.510 Pressure ulcer of right ankle, unstageable; E66.01 Morbid (severe) obesity due to excess calories; K29.70 Gastritis, unspecified, without bleeding; E83.42 Hypomagnesemia; E11.65 Type 2 diabetes mellitus with hyperglycemia; R77.8 Other specified abnormalities of plasma proteins; G31.84 Mild cognitive impairment of uncertain or unknown etiology; T38.0X5A Adverse effect of glucocorticoids and synthetic analogues, initial encounter; Y92.89 Other specified places as the place of occurrence of the external cause; Z79.82 Long term (current) use of aspirin; Z79.01 Long term (current) use of anticoagulants; Z79.891 Long term (current) use of opiate analgesic; Z68.32 Body mass index [BMI] 32.0-32.9, adult; Z79.4 Long term (current) use of insulin; Z99.81 Dependence on supplemental oxygen; Z79.899 Other long term (current) drug therapy
CPT/HCPCS: 10203; 10879; 50101; 50386; 50555; 52265; 52266; 53307; 56525; 57092; 62110; 62900

== ENCOUNTER 2020-07-21 09:23 | Inpatient (IN) | payer OTHER ==
[2020-07-21] VITALS (7 sets, daily range): BP systolic 121–172; BP diastolic 62–84
[~2020-07-21] VITALS: Ht 157.5 cm; Wt 88.1 kg
--- NOTE | ~2020-07-21 | EMS ---
[address] [address] EMS Patient Care Report Name: TERESA MACIEL Room #: 349-I ADM IN M.R.#: [id number] Admission: 07/21/20 Attend Phys: Temi Martinez Discharge: Date of : 40 Report #: [id number] THIS REPORT FOR: //name// Report Transmitted: 07/22/2020 00:11 EMS Care Summary [place], [place]/[facility] Incident [id number] @ 07/21/2020 08:49 Incident Location [address] [place] [address] Patient TERESA MACIEL Female, 79 Years 1940 Patient Address [address] [place], [place] [id number] Patient History Chronic Obstructive Pulmonary Disease (COPD),Hypertension (HTN),End Stage Renal Disease (ESRD),Colon Cancer,Bipolar II Disorder,Atrial Fibrillation,Type 2 Diabetes, Patient Allergies No known allergies, Patient Medications Cardizem, Insulin, Humalog, Depakote, Clonidine, Eliquis, Lantus, Chief Complaint Resp distress Disposition Transported No Lights/[place] Dispatch Reason Breathing Problem Transported To [facility] Narrative Called to scene for SOB of a Covid positive pt. Upon arrival, [place] staff [facility] [address] [place] [address] EMS Patient Care Report Name: TERESA MACIEL Room #: 349-I ADM IN .Erick.#: [id number] Admission: 07/21/20 Attend Phys: Temi Martinez Discharge: Date of : 40 Report #: [id number] reported she was brought back to the [place] last night from [facility] and things were fine and this morning she is in severe resp distress again. She was dx with Covid back in May sometime and has not gotten over it. CHICKEN DRESSER all parties who made pt contact used extra universal precautions. Pt was placed on a NRB. She was moved to the EMS cot and loaded into the ambulance w/o incident. Vitals obtained. SaO2 was significantly better. En route: vitals repeated. RR to [facility]. Arrived: pt taken to ER #1 and moved to their bed w/o incident. Pt care & report to ER staff. Initial Vitals @09:12P: 128,R: 40,BP: 148/51,Pain: 0/10,GCS: 10,SpO2: 100,Revised Trauma: 10, @09:06P: 127,R: 40,BP: 147/66,Pain: 0/10,GCS: 10,SpO2: 100,Revised Trauma: 10, Assessments @09:04MENTAL:Other,Person Oriented,SKIN:Hot,HEENT:LUNG SOUNDS:ABDOMEN:PELVIS//GI:Pelvis GUOther,EXTREMITIES:Left Arm: Edema,Right Arm: Edema,PULSE:Radial: 2+ Normal,NEURO:No Abnormalities, Impression Acute Respiratory Distress (Dyspnea) Procedures @09:04ALS AssessmentResponse: UnchangedSucceeded@09:04Oxygen FlowRate: 15 Device: Non Re-breather Mask (NRB) Response: ImprovedSucceeded@09:05StretcherResponse: Unchanged Timeline 08:45,Call Received 08:45,Dispatch Notified 08:49,Dispatched 08:50,En Route 09:03,On Scene 09:04,At Patient 09:04,ALS Assessment,Response: UnchangedSucceeded, 09:04,Oxygen FlowRate: 15 Device: Non Re-breather Mask (NRB) Response: ImprovedSucceeded, 09:05,Stretcher,Response: Unchanged 09:06,BP: 147/66 M,PULSE: 127,RR: 40 R,SPO2: 100 Ox,ETCO2: ,BG: ,PAIN: 0,GCS: 10, 09:07,Depart Scene 09:12,BP: 148/51 M,PULSE: 128,RR: 40 R,SPO2: 100 Ox,ETCO2: ,BG: ,PAIN: 0,GCS: 10, 09:13,At Destination 09:26,[place] [address] EMS Patient Care Report Name: PATRICIA MACIELINE Room #: 349-I [facility] IN .R.#: [id number] Admission: 07/21/20 Attend Phys: Temi Martinez Discharge: Date of : 40 Report #: [id number] v1.1 Copyright 2020 [employer] This EMS Care Summary contains data elements from the applicable legal record (which may be displayed differently). It is designed to provide pertinent information for the following purposes: continuity of care, clinical quality, and state data reporting. The complete legal record is available to ED staff and administrators of the receiving hospital in [facility]s Patient Tracker. All data is provided "as is."
[~2020-07-21 09:23] MED LIST: ASA81BEC PO; BUSPIRONE HCL7.5 MG PO; CARDIZEM CD120 MG PO; CEFEPIME 1 GM VI1 G2 INJECTION; CLONIDINE HCL0.2 M2 PO; COLACE100 MG PO; COMBIVENT INH; DEPAKOTE125 MG PO; DOXYCYCLINE 10100 M2 PO; ELIQUIS5 MG PO; GVOKE SYRI1 MG/0.2 M SUBQ; HUMALOG100 UNIT/1 SUBQ; HYDRALAZINE 10M10 MG PO; KLOR-CON 1010 MEQ PO; LANTUS SUBQ; LASIX 40 MG TAB40 MG PO; LEVO-T75 MCG PO; MAALOX ADVANCE355 M1 PO; MAGIC BULLET10 MG RECTAL; MAGNESIUM400 MG PO; MELATONIN5 MG SUBLING; MIRALAX119 GM PO; MIRTAZAPINE7.5 MG PO; NITROSTAT0.4 M1 SUBLING; OXYCODONE HCL E10 MG PO; OYSTER SHELL 21 EACH PO; PREDNISONE 1 MG1 M1 PO; PROCARDIA XL60 MG PO; PROTONIX40 M2 PO; RAYOS2 MG PO; SENNA PLUS TAB1 EACH PO; SERTRALINE HCL100 MG PO; SUPER THERAVIT1 EACH PO; TROKENDI XR50 MG PO; TYLENOL325 M1 PO; VITAMIN D310 MC2 PO; VOLTAREN GEL 1100 G1 TOP
[2020-07-21 10:13] LABS: BE(vivo) -11.6 mmol/L (-2 to +3); HCO3 12.6 mmol/L (22.0-26.0); PCO2 23.9 mmHg (35.0-45.0); PO2 98.1 mmHg (80.0-100.0); sO2 97.3 % (92.0-98.0)
--- NOTE | 2020-07-21 11:57 | NUR ---
VASCULAR ACCESS CALLED FOR CENTRAL LINE. PT UNABLE TO LAY DOWN, SITTING UP WITH BIPAP ON. SPOKE WITH DR BERMEO AND DR MCCLELLAN, UNABLE TO PLACE CVAD SO PICC WILL BE DONE. BILATERAL ARM EDEMA, CARMEN BRACHIAL ONLY VESSEL SEEN WITH USG. DEEP 2.5CM, ON 4TH ATTEMPT ABLE TO ACCESS VESSEL. 55CM TL POWER PICC INSERTED TO 5CM EXTERNAL. STAT CXR ORDERED. PT TOLERATED WELL.BLLEDING FROM INSERTION SITE. 4X4 AND COBAN APPLIED
[2020-07-21 12:38] LABS: ABSOLUTE NEUTROPHILS 9.2 thou/uL (1.4-8.2); BASOPHILS 0.6 % (0.0-2.0); HEMATOCRIT 27.2 % (37.0-47.0); HEMOGLOBIN 8.7 gm/dL (12.0-15.0); LYMPHOCYTES 13.6 % (24.0-44.0); MCH 27.9 pg (26.0-34.0); MCHC 31.9 g/dL (28.0-37.0); MCV 87.5 fL (80.0-100.0); MONOCYTES 9.2 % (1.0-8.0); PLATELET COUNT 187 thou/uL (150-400); POLYS 76.6 % (36.0-66.0); RDW 18.7 % (10.5-14.5)
[2020-07-21 12:43] LABS: CREATININE 1.8 mg/dL (0.6-1.0); POTASSIUM 3.9 mmol/L (3.5-5.1)
[2020-07-21 12:49] LABS: ALBUMIN 0.9 g/dL (3.4-5.0); TOTAL BILIRUBIN 0.3 mg/dL (0.2-1.0); TOTAL PROTEIN 7.3 g/dL (6.4-8.2)
[2020-07-21 12:53] LABS: APTT 51.1 Seconds (24.5-32.8); INR 1.4; PROTIME 14.1 Seconds (9.3-11.4)
[2020-07-21 13:12] LABS: URINE BILIRUBIN NEGATIVE (Negative); URINE BLOOD TRACE (Negative); URINE COLOR YELLOW; URINE GLUCOSE-RANDOM* NEGATIVE (Negative); URINE KETONES TRACE (Negative); URINE NITRITE-REFLEX NEGATIVE (Negative); URINE PROTEIN (DIPSTICK) 2+ (Negative); URINE SPECIFIC GRAVITY >= 1.030 (1.005-1.035); URINE UROBILINOGEN 0.2 E.U./dl (0.2-1.0)
[2020-07-21 13:15] LABS: URINE CLARITY HAZY; URINE LEUKOCYTES-REFLEX 2+ (Negative)
--- NOTE | 2020-07-21 13:21 | NUR ---
CXR TOO DEEP LINE PULLED BACK FOR TOTAL OF 8CM. 2ND CXR ORDERED
[2020-07-21 13:23] LABS: CASTS None Seen /LPF (None Seen); SQUAMOUS 4-10 Moderate /LPF (0-3); URINE RBC 0-2 Rare /HPF (0-2); URINE WBC-REFLEX >25 Many /HPF (0-5)
[2020-07-21 13:24] LABS: BACTERIA-REFLEX 1-9 Few /HPF (None Seen); CRYSTALS None Seen /LPF (None Seen); YEAST-REFLEX Present (None Seen)
[2020-07-21 14:28] LABS: ANISOCYTOSIS 2+; TARGET CELLS FEW; TEARDROPS FEW
--- NOTE | 2020-07-21 14:49 | NUR ---
SPOKE TO LEONARDO IN RADX ASKED TO ADD ADDENDUM TO CXR TO HIGHLIGHT WHERE PICC LINE IS PLACED, NOT JUST THAT IT IS 'PRESENT' HE STATES HE WILL ASK THE RADIOLOGIST BUT CANT DEUCE HE WILL ADD ANYTHING TO THE IMPRESSION SINCE "IF IT WAS MISPLACED, THE IMPRESSION WOULD HAVE SAID THAT" I ADVISED HIM THAT IT LOOKS PRESUMPTUOUS FOR THE ED STAFF TO ASSUME CORRECT PLACEMENT IF IT IS NOT SPECIFICALLY ADDRESSED AND LEONARDO REPLIED THAT HE WILL ASK THE RADIOLOGIST
--- NOTE | 2020-07-21 15:41 | NUR ---
CXR STILL IN ATRIUM, PULLED BACK 2CM MORE TOTAL 10CM EXTERNAL 3RD CXR ORDERED
--- NOTE | 2020-07-21 16:29 | NUR ---
CXR CONFIRMED PICC IN LOWER SVC, RELEASED FOR IMMEDIATE USE PER PROTOCOL
--- NOTE | 2020-07-21 19:29 | NUR ---
PATIENT ADMIT TO UNIT AT 1710 FROM ER. AWAKE. NONE VERBLE. 96% O2 SAT ON 2L/NC. WOUND PICS TAKEN. WILL KEEP MONITOR.
[2020-07-22 05:05] VITALS: BP 144/87
--- NOTE | 2020-07-22 07:24 | EKG ---
[facility] [place] [address] ELECTROCARDIOGRAM REPORT Name: PATRICIA MACIELINE Room #: 349-I ADM IN M.R.#: [id number] Admission: 07/21/20 Attend Phys: Temi Martinez Discharge: Date of : 40 Report #: [id number] THIS REPORT FOR: cc: Winston Tran James D. DO Lundgren, Craig H. MD [facility] ~ THIS REPORT FOR: //name// [facility] ED Test Date: 2020-07-21 Test Time: 11:58:57 Pat Name: TERESA MACIEL Department: Room: [facility] Gender: F Harness Brusher: ESHEETS : 1940 Requested By: Mateo Zhou Order Number: [id number] MD: Floyd Diaz Measurements Intervals [place] Rate: 121 P: 79 [place]: 137 QRS: -79 QRSD: 81 T: 56 QT: 302 QTc: 429 Interpretive Statements Sinus tachycardia LAD, consider LAFB or inferior infarct Poor R wave progression Compared to ECG 07/20/2020 02:43:19 Premature ventricular complexes are no longer present Electronically Signed On 07-22-2020 7:24:07 CDT by Floyd Diaz [email or web address] <ELECTRONICALLY SIGNED> By: Floyd Diaz MD, FAC 07/22/20 0724 1158 1158 Floyd Diaz MD, FAC /EPI
--- NOTE | 2020-07-22 07:39 | NUR ---
NOTIFIED SEWER SEPARATION DESIGNER OMID REGARDING MODERATE TO LG AMT BILE DRAINAGE NOTED FROM J-TUBE. KUB ORDERED. INFORMED DAY SHIFT NS TO F/U WITH KUB RESULTS. PT NPO FOR NOW. D5NS INFUSING. SAT 98% ON 1LNC. BS DININISHED.
[2020-07-22 07:45] VITALS: BP 142/49
--- NOTE | 2020-07-22 08:30 | NUR ---
RIGHT ARM IS UNWARPED WHEN ENTERED ROOM. PT HAS PEELING SKIN, SOME SCARED AREAS. XEROFORM, KERLIX, AND BECKY APPLIED. RIGHT OUT ANKLE PAINTED WITH BETADINE TO DRIED ABRASION AREA. BUTTOCKS HAS MULITPLE OPEN AREAS, SKIN IS DENUTED. ZGUAD IN PLACE. FMS IN PLACE, STRIPPED.
--- NOTE | 2020-07-22 08:58 | NUR ---
TALKED WITH DR. ZITA HYMAN CALLING ASKING ABOUT GIVING CONTRAST WITH LEAKING J-TUBE. HE STATES YES. XRAY NOTIFIED TO DO KUB WITH CONTRAST.
--- NOTE | 2020-07-22 09:01 | NUR ---
TALKED WITH TYREL MEHTA ON THE PHONE. UPDATE GIVEN.
--- NOTE | 2020-07-22 11:07 | NUR ---
TALKED WITH DR. ZITA PATELING HILARY RESULTS. HE STATES TO HOLD OFF USING IT.
--- NOTE | 2020-07-22 11:27 | NUR ---
When tube feeds able to resume, recommend vital AF 1.2 at 65ml/hr. Fluid needs being met with IVF.
--- NOTE | 2020-07-22 11:28 | NUR ---
INITIAL ASSESSMENT: Received consult. DARELL reviewed chart and spoke with nursing and attending physician. Pt was admitted yesterday from [facility] due to pneumonia. Pt was discharged from [facility] to [facility] on Sat. 07/20. Pt placed in Enhanced Isolation due to hx of testing positive for COVID-19. Pt's test on 07/21 was positive. Pt is afebrile and on 1L of O2. Pt is on IV abx and IV steroids. Pt has peg tube in place. medical planner to fax clinical info to [facility] for review. DARELL updated [facility] post-acute liaison. DARELL spoke with pt's son, Howard, via phone to provide update and discuss discharge plan. Pt's son confirms plan is for pt to return to [facility] when medically stable. Attending physician to contact pt's son to discuss possible LTAC placement. DARELL is following to assist as needed with discharge planning.
--- NOTE | 2020-07-22 12:34 | NUR ---
LARGE INCONTINENT STOOL. PARTIAL BATH GIVEN. ALL LINENS CHANGED. WOUND CARE TO BUTTOCKS. ZGUARD APPLIED.
--- NOTE | 2020-07-22 13:49 | NUR ---
FAXED CLINICAL UPDATE TO [facility] OF RECEIVED CONFIRMATION AND SPOKE WITH MICHELLE IN ADM.
[2020-07-22 17:40] VITALS: BP 180/69
--- NOTE | 2020-07-22 17:48 | NUR ---
PT HAS BEEN NPO TODAY. KUB WITH CONTRAST DONE TO VERIFY JTUBE PLACEMENT. RADIOLOGY REPORT STATES IT IS IN CORRECT PLACE BUT TO FOLLOW UP WITH CT. DISCUSSED WITH LENNIE. STATES TO NOT USE IT RIGHT NOW. TUBE IS STILL HAVING LARGE AMOUNT OF GREEN BILE LEAKING AROUND. AT TIMES TUBE LOOKS TO BE PULLED OUT A LITTLE. BUMPER HAS SUTURE IN PLACE TO ONE SIDE. TALKED WITH SON ON THE PHONE TODAY. O2 @ 1L VS ROOM AIR. SATURATIONS >98%. FSM AND RIOS IN PLACE. LASIX STARTED TODAY. MORPHINE PRN GIVEN X1 FOR PT MOANING OUT.
[2020-07-22 21:07] VITALS: BP 160/89
--- NOTE | 2020-07-22 21:40 | NUR ---
PT CONFUSED. SHE IS VERBAL TONIGHT. ALERT. OPENS EYES SPONTANEOUSLY. BP MODERATELY ELEVATED. 98.9 TEMP. SAT 100 ON 1LNC. PT STILL NPO. DR AWARE OF LG BILE LEAK FRO J-TUBE ACCORDING TO DAY SHIFT NS. HELD MEDS. HELD LANTUS DUE TO NO TF. REINFORCED ABD DRESSING. MODERATE AMTS BILE LIKE GREEN DRAINAGE NOTED. PT LONA SAMAYOA APPLIED FMS INTACT RIOS TO DD DRAINING CLEAR YELLOW URINE.
[2020-07-22 23:53] VITALS: BP 163/82
[2020-07-23] VITALS (7 sets, daily range): BP systolic 148–191; BP diastolic 67–93
--- NOTE | 2020-07-23 06:32 | NUR ---
NOTIFIED SANDRA ANNE OF BP THIS AM . SEE VS. METOPROLOL GIVEN ORDERED. BP DOWN TO 150s. ALSO NOTIFIED HER FOEY LEAKED. ADDED MORE NS SINCE BALLOON HAD ONLY 7 ML IN IT. WILL NOTIFIY DAY SHIFT IF IT LEAKS TO ASK DR IF OKAY TO REPLACE. ABDOOMINAL DRESSING TO J-TUBE SIGHT CHANGED AGAIN DUE TO LG AMTS GREEN BILE LIKE DRAINAGE.
[2020-07-23 07:13] LABS: ALBUMIN 0.9 g/dL (3.4-5.0); CREATININE 1.4 mg/dL (0.6-1.0); MAGNESIUM 1.2 mg/dL (1.8-2.4); POTASSIUM 3.3 mmol/L (3.5-5.1); TOTAL BILIRUBIN 0.1 mg/dL (0.2-1.0); TOTAL PROTEIN 6.6 g/dL (6.4-8.2)
--- NOTE | 2020-07-23 15:51 | NUR ---
DARELL reviewed chart and spoke with nursing and attending physician. Pt remains in Enhanced Isolation due to COVID-19. Pt is afebrile and on 1L of O2. Pt is on IV abx and IV Lasix. Awaiting blood cultures per ID. DARELL provided update to [facility] liaison. DARELL spoke with pt's son, Howard, via phone to provide update and discuss plan for pt to discharge to [facility] when medically stable. Pt's son is aware and in agreement with plan for LTAC. DARELL updated [place] post-acute liaison. DARELL is following to assist as needed with discharge planning.
--- NOTE | 2020-07-23 18:33 | NUR ---
ASSUMED CARE AT SHIFT CHANGE, ALERT AND ORIENTED X 2-3.BP ELEVATED DR HOGUE INFORMED, MEDICATION PER ORDERS. PATIENT PEG TUBE SITE IS LEAKING DR ALCANTARA CAME AND EVALUATED THE SITE, ADJUSTED THE PEG TUBE AND HE SAID IT'S OK TO USE THE PEGTUBE. THE TUBE FEED STARTED AND PATIENT TOLERATING TF WITH NO RESIDUAL. Q2 POSITIONED FOR COMFORT NEEDED AND WILL CONTINUE WITH POC.
[2020-07-24 00:22] VITALS: BP 155/76
[2020-07-24 04:32] VITALS: BP 175/68
--- NOTE | 2020-07-24 04:56 | NUR ---
Pt. oriented to person and knows she's at the hospital otherwise confused. She hollers and cries. Medicated for pain and sleep med given. She finally started to calm down and got some sleep. Repositioned for comfort. Tolerating tube feeding well and titrated up to a goal rate of 45 ml/hr with 100 ml water flushes. Fecal tube system and chen in place. Cont. on enhanced precaution , afebrile.
[2020-07-24 06:34] LABS: HEMATOCRIT 25.1 % (37.0-47.0); HEMOGLOBIN 8.1 gm/dL (12.0-15.0); MCH 28.4 pg (26.0-34.0); MCHC 32.4 g/dL (28.0-37.0); MCV 87.6 fL (80.0-100.0); RBC 2.86 mil/uL (4.20-5.00); RDW 19.2 % (10.5-14.5); WBC 7.6 thou/uL (4.0-11.0)
[2020-07-24 06:48] LABS: CALCIUM 7.9 mg/dL (8.5-10.1); CREATININE 1.4 mg/dL (0.6-1.0); PHOSPHORUS 3.4 mg/dL (2.5-4.9)
[2020-07-24 08:24] VITALS: BP 149/60
--- NOTE | 2020-07-24 09:31 | NUR ---
If approval from Dr Martinez, recommend increase tube feed to new goal of 65ml/hr. Defer all water flushes and IVF needs to physician
[2020-07-24 15:15] VITALS: BP 152/56
--- NOTE | 2020-07-24 15:50 | NUR ---
DARELL reviewed chart and spoke with nursing and attending physician. Pt remains in Enhanced Isolation due to COVID-19. Pt is afebrile and on 1L of O2. Pt is on IV Lasix, IV abx and IV steroids. Peg tube in place. Pt not ready for discharge today. [facility] is able to accept pt when medically stable pending their bed availability. DARELL updated [place] post-acute liaison. DARELL spoke with pt's son, Howard, via phone to provide update and confirm discharge plan to [facility]. DARELL updated [place] post-acute liaison. DARELL is following to assist as needed with discharge planning.
[2020-07-24 19:18] VITALS: BP 162/60
--- NOTE | 2020-07-25 00:24 | NUR ---
PT RESTING IN BED. O2 PER NC. JTUBE AND FEEDING INTACT. JTUBE CONTINUES TO LEAK AND SITE REINFORCED. IVF INTACT. RIOS AND FECAL TUBE INTACT. BLE PRAFOS AND SCDS. PT REPOSITIONED BY STAFF. PT ALERT CONFUSED, STATED SHE WOULD LIKE TO GO HOME. PT REPORTED ABD DISCOMFORT AT JTUBE SITE AND PRN FOR PAIN PROVIDED. R ARM AND L HAND HAVE EDEMA. SACRAL SITE HAS FOAM INTACT. ID DR STEEL.
[2020-07-25 03:00] VITALS: BP 156/61
[2020-07-25 06:23] LABS: ALBUMIN 1.1 g/dL (3.4-5.0); CALCIUM 8.2 mg/dL (8.5-10.1); CREATININE 1.6 mg/dL (0.6-1.0); PHOSPHORUS 3.9 mg/dL (2.5-4.9); POTASSIUM 4.9 mmol/L (3.5-5.1)
--- NOTE | 2020-07-25 06:28 | NUR ---
PT HR INCREASED TO [address]. PROVIDER NOTIFIED. PT NOT SYMPTOMATIC.
--- NOTE | 2020-07-25 06:35 | NUR ---
PROVIDER UPDATED RE HR AND RHYTHM NO NEW ORDERS.
[2020-07-25 07:13] VITALS: BP 109/58
--- NOTE | 2020-07-25 15:27 | NUR ---
DARELL reviewed chart and spoke with nursing and attending physician. Pt remains in Enhanced Isolation due to COVID-19. Pt is afebrile and on 2L of O2. Pt is on IV abx and IV steroids. Discharge to [facility] is anticipated for tomorrow. DARELL updated [facility] liaison. Will check bed availability tomorrow morning. DARELL spoke with pt's son, Howard, via phone to provide update. Howard is agreeable with discharge plan. DARELL updated [place] post-acute liaison. DARELL is following to assist as needed with discharge planning.
[2020-07-25 15:39] VITALS: BP 154/65
--- NOTE | 2020-07-25 18:30 | NUR ---
ASSUMED PATIENT CARE AT 0700. AWAKE. TOLERATED TUBE FEEDING. J TUBE SITE STILL LEEKING AFTER DEFLATED BALLON 4ML ORDERED BY DR ALCANTARA. WOUND DRESSING CHANGED PER ORDER. VSS. HR BACK TO 90/M AFTER DIGOXIN. SLOWLY TOWARDS POC GOALS.
[2020-07-25 18:55] VITALS: BP 149/69
--- NOTE | 2020-07-25 23:08 | NUR ---
PT AWAKE ALERT TO SELF. GOOD EYE CONTACT. BLUNTED AFFECT, VERBALLY TALKING WITH STAFF. RIOS AND FECAL SYSTEM INTACT. JTUBE WITH FEEDING INTACT, GREEN DRAINAGE CONTINUES SCANT. R HAND EDEMA, SCDS AND PRAFOS INTACT. LUNGS WITH WHEEZES, COUGH LOOSE. ID DR ROUNDED. SACRAL DRESSING INTACT. BED ALARM ON.
--- NOTE | 2020-07-26 00:48 | NUR ---
DURING ADL CARES AND REPOSITIONING. PT STATED I WANT TO GO HOME, LET ME , HELP ME MAMA, PLEASE DONT HURT ME. AFTER PT REPOSITIONED PT RETURNED TO WATCHING TV, NO VERBAL OUTBURSTS DENIED DISCOMFORT.
--- NOTE | 2020-07-26 01:15 | NUR ---
PT YELLING OUT GROANING. PT PROVIDED PRN FOR PAIN, PT STATED THANK YOU TO NURSE.
--- NOTE | 2020-07-26 02:20 | NUR ---
DISCUSSED WITH PROVIDER PT ON TFEEDING BUT NO LONGER DEXTROSE, SLIDING SCALE INSULING CHANGED TO MODERATE SCALE.
[2020-07-26 03:37] VITALS: BP 149/72
--- NOTE | 2020-07-26 06:11 | NUR ---
PT SINGING TO SELF AND TALKING CHEERFULLY WITH STAFF.
[2020-07-26 08:30] VITALS: BP 143/66
[2020-07-26] MEDS ORDERED: MEROPENEM1 GM IV (08:54)
[2020-07-26] MEDS ORDERED: DIGOXIN250 MCG PER TUBE (08:55)
[2020-07-26] MEDS ORDERED: HUMALOG100 UNIT/1 SUBQ (08:56)
[2020-07-26] MEDS ORDERED: LANTUS SUBQ (08:56)
[2020-07-26 09:33] VITALS: BP 158/82
--- NOTE | 2020-07-26 09:53 | NUR ---
FAXED CLINICAL UPDATE TO [facility] SPOKE WITH CASSY IN ADM SHE RECEIVED UPDATE.
--- NOTE | 2020-07-26 14:30 | NUR ---
PT CARE ASSUMED AT 0700, PT ALERT OT SELF, CONFUSED, CONTINUES TO MOAN AT TIMES. ABLE TO FOLLOW COMMANDS. PT DENIES ANY CHEST PAIN, NAUSEA AND VOMITTING. PT IS ON RROM AIR, NO SIGNS OF DISTRESS NOTED. CONTINUES TO HAVE INTERMITTENT WHEEZING AT TIMES. J TUBE IN PLACE, DRAINAGE SEEMS TO HAVE DECREASE. RIOS AND FECAL MGT IN PLACE. REPOSITIONED EVERY [address]UTIONS [address] CALL LIGHT IN REACH, BED AT LOWEST LEVEL WITH ALARM ON.
--- NOTE | 2020-07-26 15:38 | NUR ---
DARELL reviewed chart and spoke with nursing and attending physician. Pt is medically stable for discharge to [facility] today. DARELL confirmed acceptance with [facility] liaison, Yanni. Discharge orders faxed to [facility] for review. DARELL received call from Yanni stating that their COVID policy is that pt has to be in the hospital for 10 days after most recent COVID positive test. Pt had test on 07/21 upon admission. Pt is afebrile and on 0-1L of O2. Pt remains on IV abx. [facility] is able to accept pt on 07/31. DARELL notified Director of Case Mgmt. [facility] TECHNICAL PROJECT MANAGER discussed with [facility] medical record transcriber. Pt's discharge cancelled. DARELL notified pt's nurse and attending physician. DARELL spoke with pt's son, Howard, via phone to provide update. Pt's son verbalized understanding. DARELL discussed alternate placement. Pt's son states that family prefers [facility] due to location. DARELL is following to assist as needed with discharge planning.
[2020-07-26 16:35] VITALS: BP 107/31
[2020-07-26 20:18] VITALS: BP 147/69
--- NOTE | 2020-07-26 22:44 | NUR ---
PT RESTING IN BED EYES OPEN, SMILING, WATCHING STAFF AND TV. PT MUMBLING TO SELF AND STAFF CHEERFULLY. RIOS AND FECAL TO DD. JTUBE AND FEEDING INTACT. INSERTION SITE CONTINUES WITH GREEN DRAINAGE. SACRAL DRESSING INTACT. SCDS AND PRAFOS ON BLE. LUNGS REMAIN DIMINSHED. BED ALARM ON.
[2020-07-27] VITALS (9 sets, daily range): BP systolic 72–146; BP diastolic 20–118
--- NOTE | 2020-07-27 06:29 | NUR ---
PT GROANING AND INCREASE IN HR AND RR, PT WOULD NOT VERBALIZE DISCOMFORT BUT DID SAY HELP ME MAMA. PRN FOR PAIN PROVIDED. RR AND HR DECREASED, PT RESTING.
[2020-07-27 07:24] LABS: BE(vivo) -13.3 mmol/L (-2 to +3); HCO3 11.7 mmol/L (22.0-26.0); PCO2 25.1 mmHg (35.0-45.0); PO2 65.2 mmHg (80.0-100.0)
[2020-07-27 07:26] LABS: pH 7.286 (7.360-7.450)
[2020-07-27 09:22] LABS: CALCIUM 8.1 mg/dL (8.5-10.1); CREATININE 1.6 mg/dL (0.6-1.0)
[2020-07-27 09:30] LABS: POTASSIUM 6.5 mmol/L (3.5-5.1)
--- NOTE | 2020-07-27 10:37 | NUR ---
0655 UPON REPORT FROM KARLOS CARR, CORRECTIONS IDENTIFICATION TECHNICIAN STATED PT OXYGEN SATURATION IN THE 80'S.WENT IN TO ASSESS PT, PT SEEMS TO HAVE MOUTH FULL OF SECREATION, PT SUCTIONED, AND OXYGEN TURN ON. VITALS TAKEN SEE FLOW SHEET. TF STOPPED PT CONTINUES TO BE LETHARGIC, SOB AND LUNGS SOUNDS CONGESTED AND COARSE. INSERTER OPERATOR AND RT PAGED. PT OXYGEN INCREASED TO 9L, ABG'S DRAWN BY RT. 0731 DR. BERMEO PAGED WITH ABG RESULTS, NO NEWS ORDERS GIVEN. MAISHA SALDANA [employer] INSTALLER SPOKE TO DR. HOGUE AND GAVE NEW ORDERS FOR LAB. DR. HOGUE PAGED ABOUT PT LOW BP, STATED HE WILL PUT IN NEW ORDERS. FAMILY PAGED AND UPDATED ABOUT PT STATUS. SET UP FACETIME WITH FAMILY FOR PT. 0750 PT OXYGEN SATURATION IN THE 90'S, FAMILY FACETIMING WITH PT. PT CONTINES TO MOAN, UNABLE TO FOLLW COMMANDS AND ANSWER QUESTIONS. 0850 PT HR DROP DOWN TO THE 40'S, WENT IN TO ASSESS PT, PT WAS UNRESPONSIVE. OXYGEN INCREASED TO 15L, INSERTER OPERATOR AND RT PAGED. PT PLACED ON AMBU BAG, BIPAP BEING SET UP. O2 SAT CONTINES TO BE IN THE 70'S, HR 30'S WITH BP 73/33, RR 5. BIPAP PLACED ON PT, 0920 NO APICAL PULSE UPON AUSCULTATION. DR. HOGUE MADE AWARE, STATED HE WILL CALL FAMILY.
--- NOTE | 2020-07-27 10:57 | NUR ---
0740 PT OXYGEN SATURTATION IN THE 90'S ON 9L. FAMILY PAGED AND UPDATED ABOUT PT STATUS. SET UP FACETIME WITH FAMILY FOR PT 0850 PT HR IN THE 40'S, WENT INTO ROOM TO ASSESS PT, PT WAS UNRESPONSIVE, HR IN THE 30'S, OXYGEN TURN UP TO 15L, HR IN THE 70'S. AUTO WASHER AND RT PAGED. 0910 PT PLACED ON BIPAP, HR IN THE 20'S AND 30'S. EKG IN THE ROOM 0920 PAVING STONE INSTALLER SHOWED PT IN ASYSTOLE, NO APICAL PULSE AUSCULTATED. TIME OF 0920. OFFAL ROLLER CALLED DR. HOGUE AND STATED HE WILL CALL PT FAMILY.
== END 2020-07-27 12:45 | DRG 871 ==
LOC: ER 09:23 → EROBS 14:29 → 3W 14:29
PROVIDERS: Emergency Medicine; ADMIT Hospitalist; ATTEND Hospitalist
PROC: 02HV33Z Insertion of Infusion Device into Superior Vena Cava, Percutaneous Approach (ICD-10-PCS; principal; 2020-07-21)
PROC: B548ZZA Ultrasonography of Superior Vena Cava, Guidance (ICD-10-PCS; principal; 2020-07-21)
PROC: 5A09357 Assistance with Respiratory Ventilation, Less than 24 Consecutive Hours, Continuous Positive Airway Pressure (ICD-10-PCS; principal; 2020-07-21)
DX: A41.89 Other specified sepsis (principal); L89.153 Pressure ulcer of sacral region, stage 3; U07.1 COVID-19; J12.89 Other viral pneumonia; E43 Unspecified severe protein-calorie malnutrition; J96.21 Acute and chronic respiratory failure with hypoxia; K94.13 Enterostomy malfunction; I48.20 Chronic atrial fibrillation, unspecified; J44.0 Chronic obstructive pulmonary disease with (acute) lower respiratory infection; E87.0 Hyperosmolality and hypernatremia; I50.9 Heart failure, unspecified; F31.9 Bipolar disorder, unspecified; J44.9 Chronic obstructive pulmonary disease, unspecified; E11.9 Type 2 diabetes mellitus without complications; G47.33 Obstructive sleep apnea (adult) (pediatric); F41.9 Anxiety disorder, unspecified; E03.9 Hypothyroidism, unspecified; Y83.8 Other surgical procedures as the cause of abnormal reaction of the patient, or of later complication, without mention of misadventure at the time of the procedure; L89.890 Pressure ulcer of other site, unstageable; I10 Essential (primary) hypertension; E66.01 Morbid (severe) obesity due to excess calories; E87.6 Hypokalemia; E83.42 Hypomagnesemia; Y73.8 Miscellaneous gastroenterology and urology devices associated with adverse incidents, not elsewhere classified; Z66 Do not resuscitate; Z85.00 Personal history of malignant neoplasm of unspecified digestive organ; Z79.4 Long term (current) use of insulin; Z79.82 Long term (current) use of aspirin; Z79.899 Other long term (current) drug therapy; Z68.35 Body mass index [BMI] 35.0-35.9, adult; Y92.89 Other specified places as the place of occurrence of the external cause
CPT/HCPCS: 10080; 10879; 27000